=== PATIENT | male | born 1960 | race Caucasian/White ===

== ENCOUNTER 2018-03-03 18:15 | Emergency (ER) | payer MEDICARE, SELFPAY ==
[2018-03-03 18:17] VITALS: BP 140/96; PULSE 64; RESP 18; TEMP 36.1; O2SAT 97; BMI 22.2
--- NOTE | 2018-03-03 18:24 | RAD_ITS ---
STUDY: X-RAY - LEFT WRIST REASON FOR EXAM: Male, 58 years old. Trauma TECHNIQUE: 3 view(s) of the wrist were obtained. COMPARISON: None. FINDINGS: There is an impacted, comminuted fracture of the distal radius with dorsal angulation of the major distal fragment. There is a minimally displaced fracture of the ulnar styloid. There are no significant degenerative changes. There are no radiodense foreign bodies. RAD/Wrist min 3 Views IMPRESSION: Impacted, comminuted fracture of the distal radius with dorsal angulation of the major distal fragment. Minimally displaced fracture of the ulnar styloid. Electronically Signed: oRlan Brown, at 19:14 EDT Tel , Service support ,
--- NOTE | 2018-03-03 20:09 | CT_ITS ---
STUDY: CT BRAIN WITHOUT CONTRAST REASON FOR EXAM: Male, 58 years old. Fall RADIATION DOSAGE (If Supplied By Facility): CTDIvol = ( 44.99 ) mGy, DLP = ( 779.24 ) mGycm TECHNIQUE: Transaxial CT imaging of the brain was performed without administration of intravenous contrast material. Individualized dose optimization techniques were used for this CT. COMPARISON: 11/13/2012 FINDINGS: There is no acute bleed or infarct. There are stable chronic ischemic and atrophic changes. The ventricles are normal in configuration. There is no hydrocephalus. The visualized paranasal sinuses are clear. The mastoid air cells are well aerated. There is no skull fracture. CT/Brain/Head without Contrast IMPRESSION: Stable chronic ischemic and atrophic changes. No acute intracranial abnormality. Electronically Signed: Rolan Brown, at 21:00 EDT Tel , Service support ,
[2018-03-03] MEDS: Diphth,Pertuss(Acell),Tet Vac 0.5 ML Vial IM (20:58)
[2018-03-03] MEDS: HYDROcodone Bitartrate/Apap 5/325 Tablet PO ×2 (20:58→21:57)
--- NOTE | 2018-03-03 21:36 | ED.DCSUM_ITS ---
- ER Visit Summary Date of Service: 03/03/18 Chief Complaint: Fall History of Present Illness: The patient is a 58 M who states that he got up from the dinner table tripped and fell. He notes that he cut his left ear and injured his left wrist. He is an alcoholic who smokes marijuana and is a heavy tobacco user. The patient denies any loss of consciousness. He notes minimal headache. Unsure of his last tetanus. Physical Examination: Afebrile vital signs are stable Gen: Well-nourished well-developed Head: Normocephalic there is a superficial abrasion/laceration to the left ear. Wound edges are well approximated. No active bleeding. Eyes: Perrl EOMI ENT: TMs clear no rhinorrhea moist mucous membranes Neck: Supple no lymphadenopathy no JVD nontender CVS: Regular rate rhythm no murmurs normal S1-S2 Respiratory: No distress clear to auscultation bilaterally chest nontender Abdomen: Soft nontender nondistended normal bowel sounds no masses Back: Nontender Extremity: The left wrist is deformed. He is neurovascularly intact distal to the injury. Skin: Normal color no rash Neuro: alert orientated ?3 CN II-XII intact normal strength sensation reflexes gait cerebellar Psych: Normal affect normal mood Test Results: Wrist films demonstrated a comminuted intra-articular distal radius fracture with dorsal displacement of the fracture fragments. There is also a ulnar styloid fracture. CT the brain showed no intracranial hemorrhage. Emergency Department Course and Treatment: She received [place] for pain. The patient had his tetanus updated with Adacel. He was placed in a plaster AP splint. I did not feel comfortable given his medical history and sedating him to attempt reduction. I feel as he is neurovascular intact distally we can splint him as is and he can have safe reduction done in operating room. Patient will be referred to Dr. Alexander he is on no [facility]. Impression: 1. Left distal radius and ulnar fracture-closed 2. Splint by physician This note was generated with [employer]ia[employer] dictation software. It may contain incorrect words, spelling, and punctuation that were not noted in review of the chart prior to signing ED Disposition - Plan for ED Patient: Disposition: Home or Assisted Living Chief Complaint: Fall Instructions: ED Fx Wrist General Prescriptions: Hydrocodone Bitart/Apap 5-325 [[place] 5/325] 1 - 2 tab PO Q6H PRN PRN 4 Days #20 tab PRN Reason: Pain Referrals: Luis Alexander, [STAFF PHYSICIAN] - As soon as possible
[2018-03-03 21:59] VITALS: BP 142/80; PULSE 76; RESP 20; O2SAT 96
== END 2018-03-03 21:59 | disposition home or self-care (01) ==
PROVIDERS: Emergency Provider Emergency Medicine; Family Provider Family Medicine; PCP Family Medicine
DX: S52.502A Unspecified fracture of the lower end of left radius, initial encounter for closed fracture (principal); S01.312A Laceration without foreign body of left ear, initial encounter; W01.10XA Fall on same level from slipping, tripping and stumbling with subsequent striking against unspecified object, initial encounter; Y93.9 Activity, unspecified; Y92.89 Other specified places as the place of occurrence of the external cause; Y99.9 Unspecified external cause status; F17.200 Nicotine dependence, unspecified, uncomplicated; F10.20 Alcohol dependence, uncomplicated; F12.90 Cannabis use, unspecified, uncomplicated; Y90.9 Presence of alcohol in blood, level not specified; J44.9 Chronic obstructive pulmonary disease, unspecified; Z72.0 Tobacco use; Z86.19 Personal history of other infectious and parasitic diseases
CPT/HCPCS: 29125; 70450; 73110; 90471; 90715; 99283

== ENCOUNTER → 2018-03-07 09:26 | Outpatient (CLI) | payer MEDICARE, SELFPAY ==
--- NOTE | 2018-03-07 09:28 | RAD_ITS ---
STUDY: X-RAY - LEFT WRIST REASON FOR EXAM: Male, 58 years old. Fracture. TECHNIQUE: 3 view(s) of the wrist were obtained. COMPARISON: March 03, 2018. FINDINGS: Artifact from immobilization material obscures fine bony detail. Again seen is an impacted comminuted fracture of the distal radius with dorsal angulation of the major distal fracture fragment. Again seen is mildly displaced fracture of the ulnar styloid process. RAD/Wrist min 3 Views IMPRESSION: Stable appearance and positioning of the impacted comminuted distal radius fracture and the ulnar styloid fracture. Immobilization material artifact obscures fine bony detail. The fracture of the radius has undergone closed reduction with significantly less dorsal angulation of the major distal fracture fragment. Electronically Signed: Dario Manley MD at 10:06 EDT , Service support ,
== END ==
PROVIDERS: Family Provider Family Medicine; PCP Family Medicine; Visit Provider Orthopaedic Surgery
DX: M25.532 Pain in left wrist (principal)
CPT/HCPCS: 73110

== ENCOUNTER 2018-03-15 10:13 | Day surgery (SDC) | payer MEDICARE, SELFPAY ==
[2018-03-15] VITALS (8 sets, daily range): BP systolic 140–161; BP diastolic 80–99; PULSE 72–95; RESP 16–20; TEMP 36.4–37.3; O2SAT 93–96; BMI 21.2
--- NOTE | 2018-03-15 10:24 | EKG12_ITS ---
Test Reason : PRE-OP Blood Pressure : / mmHG Vent. Rate : 073 BPM Atrial Rate : 073 BPM P-R Int : 240 ms QRS Dur : 074 ms QT Int : 360 ms P-R-T Axes : 060 016 076 degrees QTc Int : 396 ms Sinus rhythm with 1st degree A-V block Otherwise normal ECG When compared with ECG of 18-MAR-2017 05:28, [place] interval has increased Vent. rate has decreased BY 38 BPM Confirmed by SOHAN MORENO, SERA ([id number]), newspaper photo editor DORY ESTRADA ([id number]) on 03/18/2018 3:57:18 PM Referred By: Luis Alexander Confirmed By:SERA PARRY MD
[2018-03-15] MEDS: Ipratropium/Albuterol Sulfate 3 ML AMPUL.NEB INHALATION (11:19)
[2018-03-15] MEDS: Clindamycin 900 MG/50 ML BAG 75 MG IV (12:42)
--- NOTE | 2018-03-15 13:00 | RAD_ITS ---
STUDY: X-RAY - LEFT WRIST REASON FOR EXAM: Male, 58 years old. ORIF IN OR TECHNIQUE: 2 view(s) of the wrist were obtained. 30.8 seconds fluoroscopy. COMPARISON: None. FINDINGS: There is internal fixation of the distal radius fracture in good alignment. The soft tissue structures are unremarkable. RAD/Wrist min 3 Views IMPRESSION: There is internal fixation of the distal radius fracture in good alignment. Electronically Signed: Sharlene Woodruff MD at 15:40 EDT Tel , Service support ,
[2018-03-15] MEDS: Bupivacaine Mpf 0.5% 30 ML VIAL (14:00)
--- NOTE | 2018-03-15 14:03 | OP.PN_ITS ---
Immediate Post-Op Note Date of Procedure: 03/15/18 Primary Surgeon/Physician: Luis Alexander DO attic fans mechanic: Jaswant Ocampo Pre-Operative Diagnosis: Left closed distal radius fracture extra-articular Colles' type Post-Operative Diagnosis: Same as above Surgery/Procedure Performed:: Left wrist open reduction internal fixations- Acumed system Description of Surgical Findings:: See dictation Estimated Blood Loss: 10 Specimen's removed: None Type of Anesthesia:: General ASA Class: ASA2 Mod Systematic Disease - Admit VTE Documentation VTE Present on Admission: No VTE Mechan Device Prophylaxis: SCD's, Knee High MARK Hose VTE Pharm Prophylaxis ordered?: No Reason prophylaxis not ordered:: Treatment Not Indicated
--- NOTE | 2018-03-15 14:03 | PCM.OPRPT ---
Report of Operation Date of Procedure: 03/15/18 Pre-Operative Diagnosis: Left closed distal radius fracture extra-articular Colles' type Post-Operative Diagnosis: Same as above Surgery/Procedure Performed:: Left wrist open reduction internal fixations-Acumed system Description of Surgical Findings:: 58-year-old [id number] male sustained a fall onto his outstretched left arm resulting in a left closed distal radius extra-articular Colles' type fracture. Patient showed significant angulation and was my recommendation patient undergo closed reduction (pinning versus open reduction internal fixation. Patient elected for operative intervention to include open reduction internal fixation at this time. Patient was counseled and consented for the aforementioned procedure. He was met in the holding area where the left upper extremity was marked and identified by the with surgeon. Patient was taken the operating room in satisfactory condition with somewhat to place to identify patient operative procedure and limb. Patient received 900 clindamycin. He had a well-placed tourniquet the left upper extremity after a successful intubation. Left upper extremity was elevated Esmarch used for exsanguination and tourniquet was increased to 250 mmHg for roughly 55 minutes. Patient had a standard FCR approach with sharp dissection down to soft tissues Bovie cautery 20 bleeding. The base of the FCR fascia was opened longitudinally. We then did a subperiosteal resection of the pronator to identify the fracture line. The patient was shortened and in dorsal angulation. We remove any excess debris and copiously irrigated the wound. Then under manual reduction were able to reaccommodate his overall alignment into neutral to a slight volar tilt and held provisionally with K wire fixation. Then using the Acumed distal radius system we placed an appropriate placed plate taken to the articular margin per standard technique and then fixing distally using locking screw technique. We had a 5? kickstand proximally. Upon completion of the distal fixation and confirmation with good mechanical alignment with AP lateral and joint line views we then began our proximal fixation using standard AO technique. This placed the wrist in neutral to slight volar tilt with excellent radial height and inclination. Upon completion of the operative procedure the wound was copiously irrigated and the pronator was reapproximated with suture management skin was reapproximated 2-0 Vicryl running subicular Monocryl and then dressed with Xeroform 4 x 4's sterile web roll and placed into a volar splint. I was scrubbed and available time during our procedure. If you require information please visit contact me. There was no drains or complications and implants included again the Acumed distal radius locking plate system. warehouse receiving clerk: Jaswant Ocampo Type of Anesthesia:: General Specimen's removed: None Estimated Blood Loss (mL): 10 Grafts/Implants Used: Acumed - Complications None - Admit VTE Documentation VTE Present on Admission: No VTE Mechan Device Prophylaxis: SCD's, Knee High MARK Hose VTE Pharm Prophylaxis ordered?: No Reason prophylaxis not ordered:: Treatment Not Indicated
--- NOTE | 2018-03-15 14:07 | OP.PCM_ITS ---
Report of Operation Date of Procedure: 03/15/18 Pre-Operative Diagnosis: Left closed distal radius fracture extra-articular Colles' type Post-Operative Diagnosis: Same as above Surgery/Procedure Performed:: Left wrist open reduction internal fixations- Acumed system Description of Surgical Findings:: 58-year-old [id number] male sustained a fall onto his outstretched left arm resulting in a left closed distal radius extra-articular Colles' type fracture. Patient showed significant angulation and was my recommendation patient undergo closed reduction (pinning versus open reduction internal fixation. Patient elected for operative intervention to include open reduction internal fixation at this time. Patient was counseled and consented for the aforementioned procedure. He was met in the holding area where the left upper extremity was marked and identified by the with surgeon. Patient was taken the operating room in satisfactory condition with somewhat to place to identify patient operative procedure and limb. Patient received 900 clindamycin. He had a well-placed tourniquet the left upper extremity after a successful intubation. Left upper extremity was elevated Esmarch used for exsanguination and tourniquet was increased to 250 mmHg for roughly 55 minutes. Patient had a standard FCR approach with sharp dissection down to soft tissues Bovie cautery 20 bleeding. The base of the FCR fascia was opened longitudinally. We then did a subperiosteal resection of the pronator to identify the fracture line. The patient was shortened and in dorsal angulation. We remove any excess debris and copiously irrigated the wound. Then under manual reduction were able to reaccommodate his overall alignment into neutral to a slight volar tilt and held provisionally with K wire fixation. Then using the Acumed distal radius system we placed an appropriate placed plate taken to the articular margin per standard technique and then fixing distally using locking screw technique. We had a 5? kickstand proximally. Upon completion of the distal fixation and confirmation with good mechanical alignment with AP lateral and joint line views we then began our proximal fixation using standard AO technique. This placed the wrist in neutral to slight volar tilt with excellent radial height and inclination. Upon completion of the operative procedure the wound was copiously irrigated and the pronator was reapproximated with suture management skin was reapproximated 2-0 Vicryl running subicular Monocryl and then dressed with Xeroform 4 x 4's sterile web roll and placed into a volar splint. I was scrubbed and available time during our procedure. If you require information please visit contact me. There was no drains or complications and implants included again the Acumed distal radius locking plate system. foreign correspondent: Jaswant Ocampo Type of Anesthesia:: General Specimen's removed: None Estimated Blood Loss (mL): 10 Grafts/Implants Used: Acumed - Complications None - Admit VTE Documentation VTE Present on Admission: No VTE Mechan Device Prophylaxis: SCD's, Knee High MARK Hose VTE Pharm Prophylaxis ordered?: No Reason prophylaxis not ordered:: Treatment Not Indicated
--- NOTE | 2018-03-15 14:07 | PCM.DC.ORTHO ---
Discharge Activity: Return to Normal Activity, May not drive while taking narcotic pain medications., May Shower, - - Keep splint covered during bathing. May resume sexual activity in: No Restrictions Ice area for (Minutes): 20 Weight Bearing Status: No weight bearing Additional Activity Instructions:: Flex and extend fingers ad shivam. Keep hand elevated to prevent swelling. Call your doctor if your incision/area has: Continuous Slow Oozing, Sudden Increased Bleeding, Increased Pain/ Swelling, Increased Redness, Foul Smelling Discharge, Swelling at the incision site Call your doctor if you observe: Fever of 101 or Higher, Coldness, Increased Pain, Numbness or Tingling, Change in Color, Inability to urinate, Inability to have a bowel movement, Using more than one pad per hour, Shortness of breath, Dizziness, Fainting spells, Swelling in the ankles, Chest pain, Prolonged hiccoughing, Increased palpitations (irregular heartbeat), Calf discomfort, Uncontrolled pain Suture Line Care: Avoid Pulling/Pushing, Avoid Pinching/Bending Allergies/Adverse Reactions: Allergies Penicillins Adverse Reaction (Verified 03/07/18 09:29) Other Medications to take at Discharge Amlodipine [Norvasc] 10 mg PO DAILY 09/28/13 Aspirin 325 mg PO DAILY 09/28/13 Citalopram Hydrobromide [Citalopram HBr] 20 mg PO DAILY 09/28/13 Gabapentin [Neurontin] 600 mg PO TIDCM 09/28/13 Lisinopril [Zestril] 20 mg PO BID 09/28/13 proMETHazine tablet [Phenergan tablet] 25 mg PO Q6H PRN PRN #14 tab 03/25/15 Doxazosin Mesylate 2 mg PO QHS 03/16/17 Ergocalciferol [Vitamin D] 2,000 unit PO SUTUTH 03/16/17 Metoprolol Succinate [Toprol Xl] 100 mg PO DAILY 03/16/17 Albuterol Inhaler [Ventolin Hfa] 2 puff INHALATION Q4H PRN PRN 09/08/17 Fluticasone/Salmeterol [Advair 100-50 Diskus] 1 ea IH BID 09/08/17 Omeprazole [Prilosec] 20 mg PO BID #60 cap 09/09/17 hydrocodone 5 mg-acetaminophen 325 mg tablet 1 - 2 tab PO Q6H PRN PRN #42 tab 03/07/18 Clindamycin [Cleocin] 300 mg PO TID #3 cap 03/15/18 Docusate Sodium [Colace] 100 mg PO BID PRN PRN #10 cap 03/15/18 Hydrocodone Bitart/Apap 5-325 [[place] 5/325] 1 - 2 tablet PO Q6H PRN PRN #30 tablet 03/15/18 Hydrocodone Bitart/Apap 5-325 [[place] 5/325] 1 - 2 tablet PO Q6H PRN PRN #60 tablet 03/15/18 Nystatin 100,000 unit PO Q6H 03/15/18 proMETHazine tablet [Phenergan] 25 mg PO Q4H PRN PRN #10 tab 03/15/18 The following prescriptions were given: proMETHazine tablet [Phenergan] 25 mg PO Q4H PRN PRN #10 tab PRN Reason: Nausea Hydrocodone Bitart/Apap 5-325 [[place] 5/325] 1 - 2 tablet PO Q6H PRN PRN #30 tablet PRN Reason: Pain Hydrocodone Bitart/Apap 5-325 [[place] 5/325] 1 - 2 tablet PO Q6H PRN PRN #60 tablet PRN Reason: Pain Docusate Sodium [Colace] 100 mg PO BID PRN PRN #10 cap PRN Reason: Constipation Clindamycin [Cleocin] 300 mg PO TID #3 cap Primary Care Physician: Lloyd Herrera MD [Primary Care Provider] - Please Follow Up With: Luis Alexander DO When: call [facility] for appt for 2 weeks Proposed Discharge Date: 03/15/18
[2018-03-15] MEDS: Ketorolac 15 MG/ML Vial IV (15:15)
== END 2018-03-15 15:44 | disposition home or self-care (01) ==
LOC: SDC 10:13 → AC 10:15
PROVIDERS: Family Provider Family Medicine; PCP Family Medicine; Visit Provider Orthopaedic Surgery
PROC: (CPT 25607; principal; 2018-03-15 11:25)
DX: S52.552A Other extraarticular fracture of lower end of left radius, initial encounter for closed fracture (principal); J44.9 Chronic obstructive pulmonary disease, unspecified; I10 Essential (primary) hypertension; F17.200 Nicotine dependence, unspecified, uncomplicated; W17.89XA Other fall from one level to another, initial encounter; Y93.9 Activity, unspecified; Y92.009 Unspecified place in unspecified non-institutional (private) residence as the place of occurrence of the external cause; Y99.9 Unspecified external cause status; K21.9 Gastro-esophageal reflux disease without esophagitis; F12.90 Cannabis use, unspecified, uncomplicated; B19.20 Unspecified viral hepatitis C without hepatic coma
CPT/HCPCS: 25607; 73110; 76000; 93005; 94640; J7120; J2405

== ENCOUNTER → 2018-03-30 08:33 | Outpatient (CLI) | payer MEDICARE, SELFPAY ==
--- NOTE | 2018-03-30 08:35 | RAD_ITS ---
STUDY: X-RAY - LEFT WRIST REASON FOR EXAM: Male, 58 years old. Fracture, follow-up. TECHNIQUE: 3 view(s) of the wrist were obtained. COMPARISON: None. FINDINGS: Ventral plating of the distal radius is present showing mild increased calyces and osseous bridging of the comminuted distal radial fracture. Normal radiocarpal articulation. Normal distal radioulnar articulation. Normal carpal bones. Normal carpal articulations. Normal carpometacarpal articulation of the thumb. Normal second through fifth carpometacarpal articulations. Normal visualized metacarpal bones. The soft tissue structures are unremarkable. RAD/Wrist min 3 Views IMPRESSION: Mild interval healing consistent with osseous bridging and callus formation of the distal comminuted fracture. Ventral plating showing no evidence of hardware failure. Electronically Signed: Nico Garcia DO at 20:20 EDT , Service support ,
== END ==
PROVIDERS: Family Provider Family Medicine; PCP Family Medicine; Visit Provider Orthopaedic Surgery
DX: S52.532A Colles' fracture of left radius, initial encounter for closed fracture (principal)
CPT/HCPCS: 73110

== ENCOUNTER → 2018-05-02 10:30 | Outpatient (CLI) | payer MEDICARE, SELFPAY ==
--- NOTE | 2018-05-02 10:32 | RAD_ITS ---
STUDY: X-RAY - LEFT WRIST REASON FOR EXAM: Male, 58 years old. Follow-up fracture TECHNIQUE: 3 view(s) of the wrist were obtained. COMPARISON: March 30, 2018 and March 03, 2018 FINDINGS: Comminuted distal radius fracture with fixation plate and screws is stable. There is partial healing with periosteal reaction. There is stable ulna styloid fracture. Normal radiocarpal articulation. Normal distal radioulnar articulation. Normal carpal bones. There is degenerative arthrosis of the carpal articulations. There is degenerative arthrosis of the carpometacarpal articulation of the thumb. Normal second through fifth carpometacarpal articulations. Normal visualized metacarpal bones. The soft tissue structures are unremarkable. RAD/Wrist min 3 Views IMPRESSION: Distal radius fracture with early healing status post ORIF. Stable ulna styloid fracture. Electronically Signed: Ciro Gaines MD at 12:04 EDT , Service support ,
== END ==
PROVIDERS: Family Provider Family Medicine; PCP Family Medicine; Visit Provider Orthopaedic Surgery
DX: M25.532 Pain in left wrist (principal)
CPT/HCPCS: 73110

== ENCOUNTER → 2018-06-13 08:26 | Outpatient (CLI) | payer MEDICARE, SELFPAY ==
--- NOTE | 2018-06-13 08:27 | RAD_ITS ---
STUDY: X-RAY - LEFT WRIST REASON FOR EXAM: Male, 58 years old. Seven-week postop TECHNIQUE: 3 view(s) of the wrist were obtained. COMPARISON: Previous study of 05/02/2018 FINDINGS: There is a fixation plate along the anterior aspect of the distal radial shaft, metaphysis, and epiphysis stabilizing a comminuted fracture of such. There is a displaced ulnar styloid process fracture. Normal radiocarpal articulation. Normal distal radioulnar articulation. The bones are osteopenic. There are degenerative changes of the first metacarpal greater multangular joint and greater multangular navicular joint. Normal second through fifth carpometacarpal articulations. Normal visualized metacarpal bones. The soft tissue structures are unremarkable. RAD/Wrist min 3 Views IMPRESSION: Internal fixation with plate and multiple screws of comminuted nondisplaced fracture of the distal radial shaft, metaphysis, and epiphysis. Fracture alignment is unchanged from the previous study. There is minimal callus and periosteal new bone formation. Bone union has not occurred as of yet. A displaced ulnar styloid process fracture is also noted. There are degenerative changes of the first metacarpal greater multangular and greater multangular navicular joints. Electronically Signed: Dominick Lopez MD at 16:59 EDT , Service support ,
== END ==
PROVIDERS: Family Provider Family Medicine; PCP Family Medicine; Visit Provider Physician Assistant
DX: M25.532 Pain in left wrist (principal)
CPT/HCPCS: 73110

== ENCOUNTER 2018-08-08 10:18 | Inpatient (IN) | payer MEDICARE, SELFPAY ==
[2018-08-08] VITALS (18 sets, daily range): BP systolic 93–149; BP diastolic 62–101; PULSE 64–86; RESP 14–22; TEMP 36.2; O2SAT 20–100; BMI 20.5; BMI 21.1
--- NOTE | 2018-08-08 10:40 | CT_ITS ---
STUDY: CT ABDOMEN AND PELVIS WITHOUT CONTRAST REASON FOR EXAM: Male, 58 years old. 4-5 week history of weakness with nausea vomiting and diarrhea. RADIATION DOSAGE (If Supplied By Facility): CTDIvol = ( 6.35 ) mGy, DLP = ( 300.05 ) mGycm TECHNIQUE: Transaxial images were obtained from the dome of the diaphragm to the symphysis pubis without oral contrast, and without intravenous contrast. Sagittal and coronal images were reconstructed. Individualized dose optimization techniques were used for this CT. COMPARISON: Comparison is made with prior study dated April 02, 2017. FINDINGS: The visualized lung bases are unremarkable. Healed rib fractures. The visualized portions of the heart are within normal limits. Normal liver. Normal gallbladder and extrahepatic biliary system. Normal spleen. Normal pancreas. Normal bilateral adrenal glands. Normal right kidney. Normal left kidney. Minimal degree of nonspecific bilateral perinephric stranding. There is a small hiatal hernia. Normal small intestine. Normal colon. The appendix is visualized and appears normal. There is diffuse atherosclerotic calcification of the abdominal aorta and its major visceral branches, without a demonstrated aneurysm. Normal inferior vena cava. There is borderline retroperitoneal lymphadenopathy with enlarged nodes no greater than 10mm in the short axis diameter. Normal urinary bladder. There are prostatic calcifications. There is a small umbilical hernia containing fat. There are diffuse degenerative changes of the visualized lumbar spine. Stable loss of height of the L4 vertebrae. CT/Abdomen/Pelvis without Cont IMPRESSION: Nonspecific bilateral perinephric stranding. Stable compression fracture of the L4 vertebra. No acute abnormalities Electronically Signed: Gordy Lang MD at 11:31 EDT Tel [phone], Service support ,
--- NOTE | 2018-08-08 10:45 | ED.VISSUMM ---
- ER Visit Summary Date of Service: 08/08/18 Chief Complaint: Nausea, vomiting, diarrhea History of Present Illness: The patient is a 58 M reports nausea, vomiting, diarrhea over the past 5 days. He states he is too weak to walk without assistance. He states he did fall and hit his right lower ribs a few days ago. He denies bloody vomitus or stools. He does drink approximately 10 beers a day. He has not been able to keep his alcohol down several days. Past history is significant for paroxysmal A. fib, hypertension, COPD, hepatitis C/cirrhosis, seizure from prior alcohol withdrawal. In addition to alcohol abuse, patient is a smoker and uses marijuana. Physical Examination: Blood pressure in triage was 95/62, but 132/119 the time of my examination. Temperature is 97.2, heart rate 76, respiratory rate 15, pulse ox 100% on room air. Head and neck examination is unremarkable with no sign of trauma. Heart is regular rate and rhythm. Lung sounds are clear. He has mild tenderness of the right lower ribs. There is no crepitus or overlying abrasion/ecchymosis. Abdomen is soft with mild right upper quadrant tenderness. Normal bowel sounds are noted. Neuro exam reveals no hand tremor at this time. Test Results: CBC was a white count of 14.1 with 71% neutrophils. Chemistry studies reveal a sodium of 109, potassium 3.2, chloride 76. Bicarb is 18. BUN is 30. On review of prior records it appears his sodium level is usually in the mid 1 teen range. He is usually discharged with sodium levels in the mid to upper 120s. LFTs and lipase are normal. Magnesium is normal. Coags normal. CT flank shows nonspecific bilateral perinephric stranding. Stable compression fracture of L4 is noted. Emergency Department Course and Treatment: Patient is given 2 L of IV fluid, Zofran, and fentanyl. On repeat evaluation he does feel somewhat improved. Family now states he had similar illness to this when he was diagnosed with C. difficile in the past. Stool studies have been ordered. Urinalysis has also been ordered secondary to the perinephric stranding on CT. At this time patient will require admission for further hydration and treatment. Hospitalist is on page. Treatment Plan: [] Disposition: Admit Impression: 1. Gastroenteritis 2. Severe hyponatremia 3. Hypokalemia This note was generated with Dragon dictation software. It may contain incorrect words, spelling, and punctuation that were not noted in review of the chart prior to signing ED Disposition - Plan for ED Patient: Chief Complaint: Nausea/Vomiting/Diarrhea Referrals: Lloyd Herrera MD [Primary Care Provider] -
[2018-08-08] MEDS: 0.9% Normal Saline 1,000 ML 1000 ML IV (10:49)
[2018-08-08] MEDS: fentaNYL 100 MCG/2 ML Ampul 25 MCG IV (10:49)
[2018-08-08] MEDS: Ondansetron 4 MG/2 ML Vial IV (10:49)
[2018-08-08 11:07] LABS: Prothrombin Time (Protime)PT. 12.9 SECONDS (11.7-14.9)
[2018-08-08 11:08] LABS: Partial Thromboplast Time 28.6 Seconds (24.1-36.2)
[2018-08-08 11:18] LABS: AST(SGOT) 37 U/L (15-37); Alanine Aminotransfer ALT/SGPT 32 U/L (16-61); Albumin, Serum 3.3 g/dL (3.2-5.0); Alkaline Phosphatase 100 U/L (45-117); Anion Gap 15 (5-15); BUN 30 mg/dL (7-18); BUN/Creat Ratio 28.6 RATIO (10-20); Bilirubin, Direct 0.25 mg/dL (0.00-0.30); Calcium,Total 8.9 mg/dL (8.5-10.1); Chloride 76 mmol/L (98-107); Creatinine, Serum 1.05 mg/dL (0.70-1.30); EST Glomerular Filtration Rate 77 mL/min (>60); Est Glom Filt Rate - Afr Amer 94 mL/min (>60); Estimated Creatinine Clearance 67.19 ml/min; Globulin 4.8 g/dL (2.2-4.2); Glucose 103 mg/dL (74-106); Lipase 189 U/L (73-393); Magnesium 2.1 mg/dL (1.6-2.6); Potassium 3.2 mmol/L (3.5-5.1); Protein, Total 8.1 g/dL (6.4-8.2); Sodium Level 109 mmol/L (136-145)
[2018-08-08 11:20] LABS: Absolute Lymphocyte Count 3.27 X10^3/ul (0.83-4.51); Absolute Neutrophil Count 10.1 X10^3/uL (2.0-7.7); Basophil# 0.01 X10^3/uL; Basophil% 0.1 % (0-1); Eosinophil# 0.05 X10^3/uL; Eosinophils% 0.4 % (0-5); Hematocrit 40.6 % (40-54); Hemoglobin 14.6 g/dl (13.0-16.5); Lymphocyte # 3.27 X10^3/ul (4.0); Lymphocyte % 23.2 % (19-41); Mean Corpuscular Volume 86.4 fL (80-94); Mean Platelet Vol. 9.8 fl (6.2-12.0); Monocyte# 0.58 X10^3/uL; Monocyte% 4.1 % (0-10); Neutrophil # 10.06 X10^3/uL (2.7-7.7); Neutrophil % 71.3 % (47-70); Platelet Count 310 K/mm3 (150-450); RBC Distribution Width CV 12.4 % (11.6-14.6); RBC Distribution Width SD 39.4 fl (35.1-43.9); White Blood Count 14.1 K/mm3 (4.4-11.0)
[2018-08-08 11:21] LABS: Differential Indicated SCAN CRITERIA MET; POSITIVE COUNT YES; POSITIVE DIFFERENTIAL NO; POSITIVE MORPHOLOGY YES
[2018-08-08 11:45] LABS: Reactive Lymphocyte RARE
[2018-08-08] MEDS: 0.9% Normal Saline 1,000 ML 999 ML IV (12:13)
--- NOTE | 2018-08-08 13:22 | PCM.HP.STD ---
Problem List (1) Hypophosphatemia Status: Resolved (2) Gastroenteritis Status: Resolved (3) Hyponatremia Status: Chronic (4) Poor dental hygiene Status: Chronic (5) Hypomagnesemia Status: Acute (6) Atrial fibrillation Status: Chronic Qualifiers: (7) Tobacco abuse Status: Chronic (8) COPD (chronic obstructive pulmonary disease) Status: Chronic (9) Hypertension Status: Chronic (10) Cannabis abuse Status: Chronic (11) Chronic hepatitis C Status: Chronic Qualifiers: (12) Continuous chronic alcoholism Status: Chronic History of Present Illness Date of Admission: 08/08/18 Chief Complaint: Nausea vomiting and diarrhea for 4 days The patient is a 58 year old M with history of chronic alcoholism about 10 bottles of beer every day and previous admissions for similar problem with hyponatremia was brought into ER for nausea, vomiting and diarrhea for last 5 days. Patient feels very weak and gets short of breath on walking short distance. Patient denies fever, chills or lower urinary tracts. He denies hematemesis, hematochezia or melena. As per the family, he did drink alcohol for about 4-5 days because of nausea and vomiting. He also has history of recurrent fall, last time few days ago and fell on his right side of chest. Patient also smokes cigarettes and marijuana In ED, he has leukocytosis 14,000 with neutrophils 71%. Sodium 109. K3.2, BUN 30, creatinine 1.05. CT abdomen was done in ER and shows nonspecific bilateral perinephric stranding and a stable compression fracture of L4 vertebra. Past Medical History Past Medical History (Chronic Problems): Chronic Problems (Last Updated 03/07/18 @ 09:30 by Jose Ruff) Hyponatremia (Chronic) Poor dental hygiene (Chronic) Atrial fibrillation (Chronic) Tobacco abuse (Chronic) COPD (chronic obstructive pulmonary disease) (Chronic) Hypertension (Chronic) Cannabis abuse (Chronic) Chronic hepatitis C (Chronic) Continuous chronic alcoholism (Chronic) Medical History: Medical History (Last Updated 03/07/18 @ 09:30 by Jose Ruff) COPD (chronic obstructive pulmonary disease) J44.9 H/O: HTN (hypertension) Z86.79 Allergies Penicillins Adverse Reaction (Verified 08/08/18 10:18) Other Home Medications: Ambulatory Orders Medication Instructions Recorded Amlodipine [Norvasc] 10 mg PO DAILY 08/08/18 Citalopram [Celexa] 20 mg PO DAILY 08/08/18 Gabapentin [Neurontin] 600 mg PO TIDCM 08/08/18 Lisinopril [Zestril] 20 mg PO BID 08/08/18 Metoprolol Succinate [Toprol Xl] 100 mg PO DAILY 08/08/18 Pantoprazole Sodium [Protonix] 20 mg PO DAILY 08/08/18 proMETHazine tablet [Phenergan 25 mg PO Q6H PRN PRN 08/08/18 tablet] Surgical History: Surgical History (Last Updated 03/30/18 @ 12:53 by Alejandra Loyd) h/o left wrist ORIF 03/15/18 H/O hemorrhoidectomy Z98.890 Surgical History: tonsillectomy, - - Hemorrhoidectomy. He has a hx of jumping off a bridge when running from the [place] and was in a body cast for 6 months. Psychiatric History: Post traumatic stress Smoking Status: Current every day smoker Tobacco Use: Cigarettes Alcohol: Heavy Drugs: Marijuana - *Family History Maternal Family History: Family History (Last Updated 03/07/18 @ 09:33 by Jose Ruff) Mother Hypertension COPD (chronic obstructive pulmonary disease) Cancer Father Hypertension Kidney disease History Items: Heart Disease, No pertinent history, - Paternal Family History: Family History (Last Updated 03/07/18 @ 09:33 by Jose Ruff) Mother Hypertension COPD (chronic obstructive pulmonary disease) Cancer Father Hypertension Kidney disease History Items: Heart Disease, No pertinent history Review of Systems Constitutional: Reports: Malaise, Weakness, Fatigue. Denies: Chills, Fever, Weight Change HEENT: Denies: Head Aches, Sinus Congestion, Sinus Drainage Cardiovascular: Denies: Chest Pain, Palpitations Respiratory: Denies: Cough, Shortness of breath at rest, Sputum production Gastrointestinal: Reports: Diarrhea, Nausea, Vomiting. Denies: Abdominal Pain, Hematemesis, Hematochezia, Melena Genitourinary: Denies: Dysuria, Frequency, Hematuria, Hesitancy, Urgency Musculoskeletal: Denies: Joint Pain, Joint Tenderness Skin: Denies: Rash, Wounds Neurological: Reports: Balance problems, Incoordination. Denies: Focal weakness, Numbness, Tingling Psychiatric: Reports: Anxiety, Depression. Denies: Homicidal Ideations, Suicidal Ideations Hematologic/ Lymphatic: Denies: Easy Bruising, Easy Bleeding VTE Information - Inpt Only VTE Present on Admission: No VTE Mechan Device Prophylaxis: None VTE Pharm Prophylaxis ordered?: Yes - Physical Exam General: Alert, Oriented x3, Cooperative HEENT: Atraumatic, PERRLA, EOMI, Normocephalic Oral: Dry Mucosa Neck: Supple, No JVD, Negative Carotid Bruits Lungs: Clear to auscultation, Normal air movement, No wheeze, No rales Cardiovascular: Regular rate, Regular Rhythm, Normal S1, Normal S2, No murmurs Abdomen: Bowel Sounds Present, Soft, Non Tender, Non-Distended Extremities: No edema, Capillary Refill Less than 3 Seconds Skin: No rashes, No breakdown Musculoskeletal: No Tenderness to Palpation of Joints or Extremities, Muscle Wasting Neurological: Cranial nerves II-XII grossly intact Psych/Mental Status: Normal Affect, Appropriate Vital Signs Temp Pulse Resp BP Pulse Ox 97.2 F L 69 16 143/87 H 97 08/08/18 10:19 08/08/18 12:46 08/08/18 12:46 08/08/18 12:46 08/08/18 12:46 Assessment/Plan All Active Problems (Last Updated 03/07/18 @ 09:30 by Jose Ruff) Hypophosphatemia (Resolved) Gastroenteritis (Resolved) Hypomagnesemia (Acute) Community acquired pneumonia (Resolved) Thrombocytopenia (Resolved) The patient is a 58 year old M with history of chronic alcoholism about 10 bottles of beer every day and previous admissions for similar problem with hyponatremia was brought into ER for nausea, vomiting and diarrhea for last 5 days. Patient feels very weak and gets short of breath on walking short distance. Patient denies fever, chills or lower urinary tracts. He denies hematemesis, hematochezia or melena. As per the family, he did drink alcohol for about 4-5 days because of nausea and vomiting. He also has history of recurrent fall, last time few days ago and fell on his right side of chest. Patient also had transient blackout with blurry vision but said he was aware of the surrounding Patient also smokes cigarettes and marijuana. In ED, he has leukocytosis 14,000 with neutrophils 71%. Sodium 109. K3.2, BUN 30, creatinine 1.05. CT abdomen was done in ER and shows nonspecific bilateral perinephric stranding and a stable compression fracture of L4 vertebra. 1. Acute on chronic hyponatremia most rapidly hypotonic hypovolemic type baseline beer protamania: Patient is being admitted in ICU. Follow BMP every 4 hourly until sodium is more than 120. Church History Teacher consult. As as I do not think it is acute severe hyponatremia but developed over 4-5 days, does not need hypertonic saline. Patient received 2 L normal saline bolus in the ED and continue IV fluid normal saline 2. Nausea, vomiting and diarrhea probably related to alcohol withdrawal: CT abdomen does not show bowel abnormality. Symptomatic management. 3. Nonspecific bilateral perinephric stranding; abnormal CT finding: Patient denies lower urinary tract symptoms. UA and urine culture ordered. Does not require antibiotic now. 4. Chronic alcohol use: CIWA protocol. Ativan as needed. Patient is awake and alert and oriented denies hallucinations. 5. history of paroxysmal atrial fibrillation: Previous EKG of March 15, 2018 shows normal sinus rhythm with first-degree AV block. EKG ordered. Patient on metoprolol succinate 100 mg daily Other chronic medical problems include hypertension, chronic hepatitis C, COPD, nicotine dependence, chronic hypophosphatemia and hypomagnesemia secondary to alcohol use and severe protein calorie malnutrition: Multiple comorbidities complicates the present care and expect difficult and delay recovery. Senior Manager [employer] consult. manager infusion consult. DVT prophylaxis: On Lovenox 40 mg subcut daily Laboratory Results 08/08/18 10:50: WBC 14.1 H, RBC 4.70, Hgb 14.6, Hct 40.6, MCV 86.4, MCH 31.0, MCHC 36.0, RDW 12.4, RDW Differential 39.4, Plt Count 310, MPV 9.8, Immature Gran % (Auto) 0.900, Neut % (Auto) 71.3 H, Lymph % (Auto) 23.2, [place] % (Auto) 4.1, Eos % (Auto) 0.4, Baso % (Auto) 0.1, Absolute Neuts (auto) 10.1 H, Absolute Lymphs (auto) 3.27, Total Counted Not Reportable, Reactive Lymphocytes RARE 08/08/18 10:50: PT 12.9, INR 1.0, APTT 28.6 08/08/18 10:50: Sodium 109 L*, Potassium 3.2 L, Chloride 76 L, Carbon Dioxide 18.0 L, Anion Gap 15, BUN 30 H, Creatinine 1.05, Estim Creat Clear Calc 67.19, Est GFR (MDRD) Af Amer 94, Est GFR (MDRD) Non-Af 77, BUN/Creatinine Ratio 28.6 H, Glucose 103, Calcium 8.9, Magnesium 2.1, Total Bilirubin 0.80, Direct Bilirubin 0.25, AST 37, ALT 32, Alkaline Phosphatase 100, Total Protein 8.1, Albumin 3.3, Globulin 4.8 H, Lipase 189 08/08/18 10:50: Ethyl Alcohol 4.0 Clinical Impression(s) from Imaging Studies Abdomen/Pelvis CT 08/08/18 10:40 IMPRESSION: Nonspecific bilateral perinephric stranding. Stable compression fracture of the L4 vertebra. No acute abnormalities Code Visit Inpatient E&M: 38977 Init Hosp L3
--- NOTE | 2018-08-08 13:28 | HP.PCM_ITS ---
Problem List (1) Hypophosphatemia Status: Resolved (2) Gastroenteritis Status: Resolved (3) Hyponatremia Status: Chronic (4) Poor dental hygiene Status: Chronic (5) Hypomagnesemia Status: Acute (6) Atrial fibrillation Status: Chronic Qualifiers: (7) Tobacco abuse Status: Chronic (8) COPD (chronic obstructive pulmonary disease) Status: Chronic (9) Hypertension Status: Chronic (10) Cannabis abuse Status: Chronic (11) Chronic hepatitis C Status: Chronic Qualifiers: (12) Continuous chronic alcoholism Status: Chronic History of Present Illness Date of Admission: 08/08/18 Chief Complaint: Nausea vomiting and diarrhea for 4 days The patient is a 58 year old M with history of chronic alcoholism about 10 bottles of beer every day and previous admissions for similar problem with hyponatremia was brought into ER for nausea, vomiting and diarrhea for last 5 days. Patient feels very weak and gets short of breath on walking short distance. Patient denies fever, chills or lower urinary tracts. He denies hematemesis, hematochezia or melena. As per the family, he did drink alcohol for about 4-5 days because of nausea and vomiting. He also has history of recurrent fall, last time few days ago and fell on his right side of chest. Patient also smokes cigarettes and marijuana In ED, he has leukocytosis 14,000 with neutrophils 71%. Sodium 109. K3.2, BUN 30, creatinine 1.05. CT abdomen was done in ER and shows nonspecific bilateral perinephric stranding and a stable compression fracture of L4 vertebra. Past Medical History Past Medical History (Chronic Problems): Chronic Problems (Last Updated 03/07/18 @ 09:30 by Jose Ruff) Hyponatremia (Chronic) Poor dental hygiene (Chronic) Atrial fibrillation (Chronic) Tobacco abuse (Chronic) COPD (chronic obstructive pulmonary disease) (Chronic) Hypertension (Chronic) Cannabis abuse (Chronic) Chronic hepatitis C (Chronic) Continuous chronic alcoholism (Chronic) Medical History: Medical History (Last Updated 03/07/18 @ 09:30 by Jose Ruff) COPD (chronic obstructive pulmonary disease) J44.9 H/O: HTN (hypertension) Z86.79 Allergies Penicillins Adverse Reaction (Verified 08/08/18 10:18) Other Home Medications: Ambulatory Orders Medication Instructions Recorded Amlodipine [Norvasc] 10 mg PO DAILY 08/08/18 Citalopram [Celexa] 20 mg PO DAILY 08/08/18 Gabapentin [Neurontin] 600 mg PO TIDCM 08/08/18 Lisinopril [Zestril] 20 mg PO BID 08/08/18 Metoprolol Succinate [Toprol Xl] 100 mg PO DAILY 08/08/18 Pantoprazole Sodium [Protonix] 20 mg PO DAILY 08/08/18 proMETHazine tablet [Phenergan 25 mg PO Q6H PRN PRN 08/08/18 tablet] Surgical History: Surgical History (Last Updated 03/30/18 @ 12:53 by Alejandra Loyd) h/o left wrist ORIF 03/15/18 H/O hemorrhoidectomy Z98.890 Surgical History: tonsillectomy, - - Hemorrhoidectomy. He has a hx of jumping off a bridge when running from the [employer] and was in a body cast for 6 months. Psychiatric History: Post traumatic stress Smoking Status: Current every day smoker Tobacco Use: Cigarettes Alcohol: Heavy Drugs: Marijuana - *Family History Maternal Family History: Family History (Last Updated 03/07/18 @ 09:33 by Jose Ruff) Mother Hypertension COPD (chronic obstructive pulmonary disease) Cancer Father Hypertension Kidney disease History Items: Heart Disease, No pertinent history, - Paternal Family History: Family History (Last Updated 03/07/18 @ 09:33 by Jose Ruff) Mother Hypertension COPD (chronic obstructive pulmonary disease) Cancer Father Hypertension Kidney disease History Items: Heart Disease, No pertinent history Review of Systems Constitutional: Reports: Malaise, Weakness, Fatigue. Denies: Chills, Fever, Weight Change HEENT: Denies: Head Aches, Sinus Congestion, Sinus Drainage Cardiovascular: Denies: Chest Pain, Palpitations Respiratory: Denies: Cough, Shortness of breath at rest, Sputum production Gastrointestinal: Reports: Diarrhea, Nausea, Vomiting. Denies: Abdominal Pain, Hematemesis, Hematochezia, Melena Genitourinary: Denies: Dysuria, Frequency, Hematuria, Hesitancy, Urgency Musculoskeletal: Denies: Joint Pain, Joint Tenderness Skin: Denies: Rash, Wounds Neurological: Reports: Balance problems, Incoordination. Denies: Focal weakness , Numbness, Tingling Psychiatric: Reports: Anxiety, Depression. Denies: Homicidal Ideations, Suicidal Ideations Hematologic/ Lymphatic: Denies: Easy Bruising, Easy Bleeding VTE Information - Inpt Only VTE Present on Admission: No VTE Mechan Device Prophylaxis: None VTE Pharm Prophylaxis ordered?: Yes - Physical Exam General: Alert, Oriented x3, Cooperative HEENT: Atraumatic, PERRLA, EOMI, Normocephalic Oral: Dry Mucosa Neck: Supple, No JVD, Negative Carotid Bruits Lungs: Clear to auscultation, Normal air movement, No wheeze, No rales Cardiovascular: Regular rate, Regular Rhythm, Normal S1, Normal S2, No murmurs Abdomen: Bowel Sounds Present, Soft, Non Tender, Non-Distended Extremities: No edema, Capillary Refill Less than 3 Seconds Skin: No rashes, No breakdown Musculoskeletal: No Tenderness to Palpation of Joints or Extremities, Muscle Wasting Neurological: Cranial nerves II-XII grossly intact Psych/Mental Status: Normal Affect, Appropriate Vital Signs Temp Pulse Resp BP Pulse Ox 97.2 F L 69 16 143/87 H 97 08/08/18 10:19 08/08/18 12:46 08/08/18 12:46 08/08/18 12:46 08/08/18 12:46 Assessment/Plan All Active Problems (Last Updated 03/07/18 @ 09:30 by Jose Ruff) Hypophosphatemia (Resolved) Gastroenteritis (Resolved) Hypomagnesemia (Acute) Community acquired pneumonia (Resolved) Thrombocytopenia (Resolved) The patient is a 58 year old M with history of chronic alcoholism about 10 bottles of beer every day and previous admissions for similar problem with hyponatremia was brought into ER for nausea, vomiting and diarrhea for last 5 days. Patient feels very weak and gets short of breath on walking short distance. Patient denies fever, chills or lower urinary tracts. He denies hematemesis, hematochezia or melena. As per the family, he did drink alcohol for about 4-5 days because of nausea and vomiting. He also has history of recurrent fall, last time few days ago and fell on his right side of chest. Patient also had transient blackout with blurry vision but said he was aware of the surrounding Patient also smokes cigarettes and marijuana. In ED, he has leukocytosis 14,000 with neutrophils 71%. Sodium 109. K3.2, BUN 30, creatinine 1.05. CT abdomen was done in ER and shows nonspecific bilateral perinephric stranding and a stable compression fracture of L4 vertebra. 1. Acute on chronic hyponatremia most rapidly hypotonic hypovolemic type baseline beer protamania: Patient is being admitted in ICU. Follow BMP every 4 hourly until sodium is more than 120. Christmas Tree Contractor consult. As as I do not think it is acute severe hyponatremia but developed over 4-5 days, does not need hypertonic saline. Patient received 2 L normal saline bolus in the ED and continue IV fluid normal saline 2. Nausea, vomiting and diarrhea probably related to alcohol withdrawal: CT abdomen does not show bowel abnormality. Symptomatic management. 3. Nonspecific bilateral perinephric stranding; abnormal CT finding: Patient denies lower urinary tract symptoms. UA and urine culture ordered. Does not require antibiotic now. 4. Chronic alcohol use: CIWA protocol. Ativan as needed. Patient is awake and alert and oriented denies hallucinations. 5. history of paroxysmal atrial fibrillation: Previous EKG of March 15, 2018 shows normal sinus rhythm with first-degree AV block. EKG ordered. Patient on metoprolol succinate 100 mg daily Other chronic medical problems include hypertension, chronic hepatitis C, COPD , nicotine dependence, chronic hypophosphatemia and hypomagnesemia secondary to alcohol use and severe protein calorie malnutrition: Multiple comorbidities complicates the present care and expect difficult and delay recovery. Weight Loss Consultant consult. education and development manager consult. DVT prophylaxis: On Lovenox 40 mg subcut daily Laboratory Results 08/08/18 10:50: WBC 14.1 H, RBC 4.70, Hgb 14.6, Hct 40.6, MCV 86.4, MCH 31.0, MCHC 36.0, RDW 12.4, RDW Differential 39.4, Plt Count 310, MPV 9.8, Immature Gran % (Auto) 0.900, Neut % (Auto) 71.3 H, Lymph % (Auto) 23.2, [place] % (Auto) 4.1, Eos % (Auto) 0.4, Baso % (Auto) 0.1, Absolute Neuts (auto) 10.1 H, Absolute Lymphs (auto) 3.27, Total Counted Not Reportable, Reactive Lymphocytes RARE 08/08/18 10:50: PT 12.9, INR 1.0, APTT 28.6 08/08/18 10:50: Sodium 109 L*, Potassium 3.2 L, Chloride 76 L, Carbon Dioxide 18.0 L, Anion Gap 15, BUN 30 H, Creatinine 1.05, Estim Creat Clear Calc 67.19, Est GFR (MDRD) Af Amer 94, Est GFR (MDRD) Non-Af 77, BUN/Creatinine Ratio 28.6 H , Glucose 103, Calcium 8.9, Magnesium 2.1, Total Bilirubin 0.80, Direct Bilirubin 0.25, AST 37, ALT 32, Alkaline Phosphatase 100, Total Protein 8.1, Albumin 3.3, Globulin 4.8 H, Lipase 189 08/08/18 10:50: Ethyl Alcohol 4.0 Clinical Impression(s) from Imaging Studies Abdomen/Pelvis CT 08/08/18 10:40 IMPRESSION: Nonspecific bilateral perinephric stranding. Stable compression fracture of the L4 vertebra. No acute abnormalities Code Visit Inpatient E&M: 19097 Init Hosp L3
--- NOTE | 2018-08-08 13:40 | EKG12_ITS ---
Test Reason : ADMISSION EKG Blood Pressure : / mmHG Vent. Rate : 077 BPM Atrial Rate : 077 BPM P-R Int : 238 ms QRS Dur : 078 ms QT Int : 412 ms P-R-T Axes : 078 033 060 degrees QTc Int : 466 ms Sinus rhythm with 1st degree A-V block Otherwise normal ECG When compared with ECG of 15-MAR-2018 10:33, T wave amplitude has decreased in Anterior leads QT has lengthened Confirmed by SOHAN MORENO, SERA ([id number]), editorial writer DORY ESTRADA ([id number] on 08/12/2018 3:01:09 PM Referred By: Nirmal Sears Confirmed By:SERA PARRY MD
[2018-08-08] MEDS: 0.9% Normal Saline 1,000 ML 150 ML IV ×2 (13:44→20:21)
[2018-08-08 14:07] LABS: Bacteria 0 SEEN /hpf (None Seen); Mucous, Urine 0 SEEN /hpf (<or=2+); Red Blood Cells-Urine 0 SEEN /hpf (0-5); Squamous Epithelial Cells - UA 0 SEEN /hpf (0-5); White Blood Cells 0 SEEN /hpf (0-5)
[2018-08-08 14:14] LABS: Magnesium 2.1 mg/dL (1.6-2.6); Phosphorus 3.3 mg/dL (2.5-4.9)
[2018-08-08 14:16] LABS: Amphetamine Urine VISTA NEGATIVE (<1000 ng/mL); Barbiturate Urine VISTA NEGATIVE (< 200 ng/mL); Benzodiazepine Urine VISTA NEGATIVE (< 200 ng/mL); Cocaine Urine VISTA NEGATIVE (< 300 ng/mL); Ecstacy Urine VISTA NEGATIVE (< 500 ng/mL); Methadone Urine VISTA NEGATIVE (< 300 ng/mL); PCP Urine VISTA NEGATIVE (< 25 ng/mL); THC Urine VISTA NEGATIVE (< 50 ng/mL); Vista UDS pH Range 5
[2018-08-08 14:22] LABS: BUN 27 mg/dL (7-18); BUN/Creat Ratio 32.7 RATIO (10-20); Calcium,Total 7.9 mg/dL (8.5-10.1); Chloride 85 mmol/L (98-107); Creatinine, Serum 0.82 mg/dL (0.70-1.30); EST Glomerular Filtration Rate 102 mL/min (>60); Est Glom Filt Rate - Afr Amer 124 mL/min (>60); Estimated Creatinine Clearance 88.57 ml/min; Glucose 87 mg/dL (74-106); Potassium 3.2 mmol/L (3.5-5.1); Sodium Level 115 mmol/L (136-145)
[2018-08-08 14:23] LABS: Anion Gap 14 (5-15)
[2018-08-08 14:23] LABS: Color, Urine Straw (Yellow); Glucose, Dipstick Normal (Normal); Ketone-Dipstick 5 mg/dl (Negative); Leukocyte Esterase-Dipstick Negative /ul (Negative); Nitrite-Dipstick Negative (Negative); Occult Blood-Urine Negative /ul (Negative); Protein-Dipstick Negative (Negative); Urine Bilirubin Dipstick Negative (Negative); Urine Clarity Clear (Clear); Urine Urobilinogen Normal (Normal)
[2018-08-08] MEDS: Thiamine Hydrochloride 100 MG Tablet PO ×2 (15:42→18:23)
[2018-08-08] MEDS: Enoxaparin 40 MG/0.4 ML Syringe SC (15:42)
--- NOTE | 2018-08-08 15:55 | PCM.CON.CC ---
Problem List (1) Hyponatremia Status: Chronic (2) Poor dental hygiene Status: Chronic (3) Hypomagnesemia Status: Acute (4) Tobacco abuse Status: Chronic (5) COPD (chronic obstructive pulmonary disease) Status: Chronic (6) Hypertension Status: Chronic (7) Cannabis abuse Status: Chronic (8) Chronic hepatitis C Status: Chronic Qualifiers: (9) Continuous chronic alcoholism Status: Chronic Reason for Consult Date of Consultation: 08/08/18 Reason for Consultation: Hyponatremia History of Present Illness: The patient is a 58 year old M, with past medical history listed below, who presents to [facility] on 08/08/2018 secondary to nausea, vomiting and diarrhea over the last 5 days. Patient reportedly was so weak that he could not walk without assistance. Patient did have a fall couple days ago onto his right side. Patient denies any bloody emesis or stools. Patient does have a past medical history significant for excisional A. fib, COPD and seizure with alcohol withdrawal. Patient states that he typically drinks approximately 10 beers per day. On presentation to the emergency room, patient was noted to be 95/62 and 100% on room air. Patient was noted to have a leukocytosis on chemistries and a sodium of 109 with hypokalemia at 3.2. CT scan of the abdomen showed nonspecific bilateral perinephric stranding with a stable compression fracture at L4. Patient was given 2 L of IV fluids, Zofran, fentanyl and admitted to the intensive care unit for evaluation. Since being in the intensive care unit, patient reports subjective improvement. Patient did have 2 episodes of watery diarrhea noted. Patient feels no nausea at the time of my evaluation. Patient reports his last drink was this morning. Patient denies any fever, chills, melena, hematochezia or hematemesis at home. Patient does have a history of hyponatremia in the past. Patient states he has had seizures associated with alcohol cessation, but recently was jailed for 3 days and did not have a problem. Patient is an avid smoker. Patient did have an episode of choking on a pill while in the ER. However, family reports that he has not had significant issues with choking while at home. Review of systems otherwise negative ?10 systems. Past Medical History Past Medical History (Chronic Problems): Chronic Problems (Last Updated 03/07/18 @ 09:30 by Jose Ruff) Hyponatremia (Chronic) Poor dental hygiene (Chronic) Atrial fibrillation (Chronic) Tobacco abuse (Chronic) COPD (chronic obstructive pulmonary disease) (Chronic) Hypertension (Chronic) Cannabis abuse (Chronic) Chronic hepatitis C (Chronic) Continuous chronic alcoholism (Chronic) Medical History: Medical History (Last Updated 03/07/18 @ 09:30 by Jose Ruff) COPD (chronic obstructive pulmonary disease) J44.9 H/O: HTN (hypertension) Z86.79 Allergies Penicillins Adverse Reaction (Verified 08/08/18 10:18) Other Home Medications: Ambulatory Orders Medication Instructions Recorded Albuterol Inhaler [Ventolin Hfa 2 puff INHALATION Q4H PRN PRN 08/08/18 (SP)] Albuterol Inhaler [Ventolin Hfa] 1 puff INHALATION Q6H PRN PRN 08/08/18 Amlodipine [Norvasc] 10 mg PO DAILY 08/08/18 Aspirin E.C. [Ecotrin] 325 mg PO DAILY@0800 08/08/18 Cholecalciferol (Vitamin D3) 2,000 unit PO QWEEK 08/08/18 [Vitamin D3] Citalopram [Celexa] 20 mg PO DAILY 08/08/18 Doxazosin Mesylate 2 mg PO QHS 08/08/18 Fluticasone/Salmeterol [Advair 1 each IH BID 08/08/18 100-50 Diskus] Gabapentin [Neurontin] 600 mg PO TIDCM 08/08/18 Lisinopril [Zestril] 20 mg PO BID 08/08/18 Metoprolol Succinate [Toprol Xl] 100 mg PO DAILY 08/08/18 Nystatin 5 ml PO 4X/DAY 08/08/18 Pantoprazole Sodium [Protonix] 20 mg PO DAILY 08/08/18 proMETHazine tablet [Phenergan 25 mg PO Q6H PRN PRN 08/08/18 tablet] Surgical History: Surgical History (Last Updated 03/30/18 @ 12:53 by Alejandra Loyd) h/o left wrist ORIF 03/15/18 H/O hemorrhoidectomy Z98.890 Surgical History: tonsillectomy, - - Hemorrhoidectomy. He has a hx of jumping off a bridge when running from the [employer] and was in a body cast for 6 months. Psychiatric History: Post traumatic stress Smoking Status: Current every day smoker Tobacco Use: Cigarettes Alcohol: Heavy Drugs: Marijuana - *Family History Maternal Family History: Family History (Last Updated 03/07/18 @ 09:33 by Jose Ruff) Mother Hypertension COPD (chronic obstructive pulmonary disease) Cancer Father Hypertension Kidney disease History Items: Heart Disease, No pertinent history, - Paternal Family History: Family History (Last Updated 03/07/18 @ 09:33 by Jose Ruff) Mother Hypertension COPD (chronic obstructive pulmonary disease) Cancer Father Hypertension Kidney disease History Items: Heart Disease, No pertinent history Review of Systems Comment: See HPI Objective: CT of the abdomen was reviewed. L4 compression fracture appreciated. Lung bases appeared normal. There are some healing rib fractures. - Physical Exam General: Alert, Oriented x3, Cooperative, No apparent distress, - - Appears older than stated age. Cachectic. Disheveled HEENT: Atraumatic, PERRLA, EOMI, Normocephalic, - - No scleral icterus or injection noted. Oral: No Gingival or Mucosal Lesions/ Ulcerations, Dry Mucosa, - - Poor dentition Neck: Supple, No JVD, No Nodes, Trachea Midline Lungs: No rhonchi, No wheeze, No rales, Diminished, - - Symmetric expansion. No dullness to percussion. Cardiovascular: Regular rate, Regular Rhythm, Normal S1, Normal S2, No murmurs, No rub noted, No Gallop Abdomen: Bowel Sounds Present, Soft, Non Tender, Non-Distended Extremities: No cyanosis, No edema, Capillary Refill Less than 3 Seconds, Clubbing Skin: No rashes, No breakdown Musculoskeletal: No Tenderness to Palpation of Joints or Extremities, Cachexia, Muscle Wasting Lymphatic: No Cervical, Supraclavicular, or Inguinal Adenopathy Neurological: Cranial nerves II-XII grossly intact, Neuro grossly intact, Motor Exam 5/5 strength throughout Psych/Mental Status: Alert and oriented to time, place, person, mood and affect Vital Signs Temp Pulse Resp BP Pulse Ox 36.2 C L 79 17 126/85 H 96 08/08/18 10:19 08/08/18 15:00 08/08/18 15:00 08/08/18 15:00 08/08/18 15:00 Oxygen Delivery Method Room Air Weight: 63 kg Body Mass Index (BMI) 21.1 Microbiology Past 72 Hours 08/08/18 13:50 Stool Lactoferrin - Final Stool Laboratory Tests Past 24 Hrs 08/08/18 08/08/18 08/08/18 13:50 13:55 13:55 Sodium 115 L* Potassium 3.2 L Chloride 85 L Carbon Dioxide 16.0 L Anion Gap 14 BUN 27 H Creatinine 0.82 Estim Creat Clear Calc 88.57 Est GFR (MDRD) Af Amer 124 Est GFR (MDRD) Non-Af 102 BUN/Creatinine Ratio 32.7 H Glucose 87 Calcium 7.9 L Urine Color Straw Urine Clarity Clear Urine pH 5.0 Ur Specific [place] 1.010 Urine Protein Negative Urine Glucose (UA) Normal Urine Ketones 5 H Urine Occult Blood Negative Urine Nitrite Negative Urine Bilirubin Negative Urine Urobilinogen Normal Ur Leukocyte Esterase Negative Urine RBC 0 SEEN Urine WBC 0 SEEN Ur Squamous Epith Cells 0 SEEN Urine Bacteria 0 SEEN Urine Mucus 0 SEEN Urine Opiates Screen NEGATIVE Urine Methadone Screen NEGATIVE Ur Barbiturates Screen NEGATIVE Ur Phencyclidine Scrn NEGATIVE Ur Amphetamines Screen NEGATIVE U Methamphetamin-MDMA NEGATIVE U Benzodiazepines Scrn NEGATIVE Urine Cocaine Screen NEGATIVE U Cannabinoids Screen NEGATIVE Ur Drug Screen Comment Clinical Impression(s) from Imaging Studies Abdomen/Pelvis CT 08/08/18 10:40 IMPRESSION: Nonspecific bilateral perinephric stranding. Stable compression fracture of the L4 vertebra. No acute abnormalities Electronically Signed: Gordy Lang MD at 11:31 EDT Tel [phone], Service support , Assessment/Plan RECOMMENDATIONS: 1. Continue aggressive fluid resuscitation 2. Await stool studies 3. CIWA protocol 4. Monitor for A. fib with telemetry 5. Bronchodilators as needed IMPRESSIONS: 1. Hypovolemic hyponatremia Acute on chronic finding. Patient does have significant difficulty with alcoholism, which would exacerbate current findings. However, patient is reporting significant GI losses over the last 5 days. Patient is responding well to fluid resuscitation. Patient does have stool studies currently pending. Continue to monitor BMP every 4 hours. Patient is in seizure precautions for both hyponatremia and alcohol withdrawal. Possibly transfer out of the intensive care unit once patient's sodium is greater than 125. 2. Chronic alcoholism/gastroenteritis Unclear etiology of gastroenteritis at this time. Patient does have stool studies currently pending. Patient's CT scan of the abdomen was unimpressive. Agree with avoiding antibiotic at this time. Patient should be placed on the CIWA protocol. 3. History of paroxysmal A. fib/hypertension/hepatitis C/reported COPD/severe protein calorie malnutrition Locates care, management, recovery and prognosis. As needed bronchodilator therapy is likely sufficient. Low clinical suspicion for COPD exacerbation. Patient will be seen by dietitian. Likely need to monitor for refeeding syndrome. Code Visit Inpatient E&M: 34895 Init Hosp L3
--- NOTE | 2018-08-08 16:01 | CASEMGMT ---
RN CM Assessment complete. See Link DC PLAN: undetermined, SW consult for ETOH abuse, possible [facility] intervention. Sawyer SOLISN RN ACM
[2018-08-08] MEDS: Gabapentin 600 MG Tablet PO (18:22)
[2018-08-08 18:39] LABS: BUN 27 mg/dL (7-18); EST Glomerular Filtration Rate 92 mL/min (>60); Estimated Creatinine Clearance 80.69 ml/min; Glucose 117 mg/dL (74-106)
[2018-08-08 18:40] LABS: Anion Gap 9 (5-15); BUN/Creat Ratio 29.8 RATIO (10-20); Calcium,Total 7.7 mg/dL (8.5-10.1); Chloride 92 mmol/L (98-107); Est Glom Filt Rate - Afr Amer 111 mL/min (>60); Potassium 3.3 mmol/L (3.5-5.1); Sodium Level 120 mmol/L (136-145)
--- NOTE | 2018-08-08 23:10 | NURSING ---
This RN received report over telephone from Dunia SENSOR TECHNICIAN
[2018-08-09] VITALS (16 sets, daily range): BP systolic 92–174; BP diastolic 58–115; PULSE 68–87; RESP 16–19; TEMP 36.5–37.3; O2SAT 94–100
[2018-08-09] MEDS: Ipratropium/Albuterol Sulfate 3 ML AMPUL.NEB INHALATION ×2 (00:51→15:35)
[2018-08-09 04:45] LABS: BUN 20 mg/dL (7-18); BUN/Creat Ratio 26.3 RATIO (10-20); Calcium,Total 7.8 mg/dL (8.5-10.1); Creatinine, Serum 0.76 mg/dL (0.70-1.30); EST Glomerular Filtration Rate 112 mL/min (>60); Est Glom Filt Rate - Afr Amer 136 mL/min (>60); Estimated Creatinine Clearance 95.56 ml/min; Glucose 129 mg/dL (74-106); Sodium Level 124 mmol/L (136-145)
[2018-08-09 04:46] LABS: Anion Gap 7 (5-15); Chloride 96 mmol/L (98-107); Potassium 3.2 mmol/L (3.5-5.1)
[2018-08-09 05:40] LABS: Hematocrit 33.3 % (40-54); Mean Corpuscular Hgb 31.9 pg (27.0-32.0); Mean Corpuscular Volume 88.6 fL (80-94); RBC Distribution Width CV 12.5 % (11.6-14.6); Red Blood Count 3.76 M/mm3 (4.6-6.2); White Blood Count 9.8 K/mm3 (4.4-11.0)
[2018-08-09 05:41] LABS: Mean Platelet Vol. 8.9 fl (6.2-12.0); Platelet Count 266 K/mm3 (150-450); Scan Indicated on CBC? Y/N NO
[2018-08-09 05:53] LABS: Anion Gap 9 (5-15); BUN 18 mg/dL (7-18); BUN/Creat Ratio 21.5 RATIO (10-20); Calcium,Total 8.5 mg/dL (8.5-10.1); Chloride 96 mmol/L (98-107); Creatinine, Serum 0.84 mg/dL (0.70-1.30); EST Glomerular Filtration Rate 100 mL/min (>60); Est Glom Filt Rate - Afr Amer 121 mL/min (>60); Estimated Creatinine Clearance 86.05 ml/min; Glucose 101 mg/dL (74-106); Potassium 3.8 mmol/L (3.5-5.1); Sodium Level 128 mmol/L (136-145)
--- NOTE | 2018-08-09 07:40 | PCM.PN.INT ---
Subjective: Patient transferred out of the intensive care unit yesterday. Patient reports he feels back to baseline at this time. No withdrawal symptoms have been reported. Patient tolerating room air and no fevers have been noted. General: Alert, Oriented x3, Cooperative, No apparent distress, - - Appears older than stated age. Disheveled. HEENT: Atraumatic, PERRLA, EOMI, Normocephalic, - - No scleral icterus or injection noted. Oral: Moist Mucosa, No Gingival or Mucosal Lesions/ Ulcerations, - - Poor dentition Neck: Supple, No JVD, No Nodes, Trachea Midline Lungs: No rhonchi, No wheeze, No rales, Diminished, - - Symmetric expansion. No dullness to percussion. Cardiovascular: Regular rate, Regular Rhythm, Normal S1, Normal S2, No murmurs, No rub noted, No Gallop Abdomen: Bowel Sounds Present, Soft, Non Tender, Non-Distended Extremities: No cyanosis, No edema, Capillary Refill Less than 3 Seconds, Clubbing Skin: - - No significant change from previous Musculoskeletal: No Tenderness to Palpation of Joints or Extremities Lymphatic: No Cervical, Supraclavicular, or Inguinal Adenopathy Neurological: Cranial nerves II-XII grossly intact, Neuro grossly intact, Motor Exam 5/5 strength throughout Psych/Mental Status: Alert and oriented to time, place, person, mood and affect Vital Signs Temp Pulse Resp BP Pulse Ox 36.7 C 86 16 174/115 H 100 08/09/18 04:10 08/09/18 04:10 08/09/18 04:10 08/09/18 04:10 08/09/18 04:10 Oxygen Delivery Method Room Air Weight: 62.7 kg Body Mass Index (BMI) 21.1 Intake and Output for Last 24 Hours 08/07/18 08/08/18 08/09/18 23:59 23:59 23:59 Intake Total 4676 / 4676 901 / 901 Output Total 1750 / 1750 775 / 775 Balance 2926 / 2926 126 / 126 Labs (Last 48 Hours) 08/08/18 08/08/18 08/08/18 10:50 10:50 10:50 WBC 14.1 H RBC 4.70 Hgb 14.6 Hct 40.6 MCV 86.4 MCH 31.0 MCHC 36.0 RDW 12.4 RDW Differential 39.4 Plt Count 310 MPV 9.8 Immature Gran % (Auto) 0.900 Neut % (Auto) 71.3 H Lymph % (Auto) 23.2 [place] % (Auto) 4.1 Eos % (Auto) 0.4 Baso % (Auto) 0.1 Absolute Neuts (auto) 10.1 H Absolute Lymphs (auto) 3.27 Total Counted Not Reportable Reactive Lymphocytes RARE PT 12.9 INR 1.0 APTT 28.6 Sodium 109 L* Potassium 3.2 L Chloride 76 L Carbon Dioxide 18.0 L Anion Gap 15 BUN 30 H Creatinine 1.05 Estim Creat Clear Calc 67.19 Est GFR (MDRD) Af Amer 94 Est GFR (MDRD) Non-Af 77 BUN/Creatinine Ratio 28.6 H Glucose 103 Calcium 8.9 Phosphorus Magnesium 2.1 Total Bilirubin 0.80 Direct Bilirubin 0.25 AST 37 ALT 32 Alkaline Phosphatase 100 Total Protein 8.1 Albumin 3.3 Globulin 4.8 H Lipase 189 Urine Color Urine Clarity Urine pH Ur Specific [place] Urine Protein Urine Glucose (UA) Urine Ketones Urine Occult Blood Urine Nitrite Urine Bilirubin Urine Urobilinogen Ur Leukocyte Esterase Urine RBC Urine WBC Ur Squamous Epith Cells Urine Bacteria Urine Mucus Urine Opiates Screen Urine Methadone Screen Ur Barbiturates Screen Ur Phencyclidine Scrn Ur Amphetamines Screen U Methamphetamin-MDMA U Benzodiazepines Scrn Urine Cocaine Screen U Cannabinoids Screen Ur Drug Screen Comment Ethyl Alcohol 08/08/18 08/08/18 08/08/18 10:50 10:50 13:50 WBC RBC Hgb Hct MCV MCH MCHC RDW RDW Differential Plt Count MPV Immature Gran % (Auto) Neut % (Auto) Lymph % (Auto) [place] % (Auto) Eos % (Auto) Baso % (Auto) Absolute Neuts (auto) Absolute Lymphs (auto) Total Counted Reactive Lymphocytes PT INR APTT Sodium Potassium Chloride Carbon Dioxide Anion Gap BUN Creatinine Estim Creat Clear Calc Est GFR (MDRD) Af Amer Est GFR (MDRD) Non-Af BUN/Creatinine Ratio Glucose Calcium Phosphorus 3.3 Magnesium 2.1 Total Bilirubin Direct Bilirubin AST ALT Alkaline Phosphatase Total Protein Albumin Globulin Lipase Urine Color Straw Urine Clarity Clear Urine pH 5.0 Ur Specific [place] 1.010 Urine Protein Negative Urine Glucose (UA) Normal Urine Ketones 5 H Urine Occult Blood Negative Urine Nitrite Negative Urine Bilirubin Negative Urine Urobilinogen Normal Ur Leukocyte Esterase Negative Urine RBC 0 SEEN Urine WBC 0 SEEN Ur Squamous Epith Cells 0 SEEN Urine Bacteria 0 SEEN Urine Mucus 0 SEEN Urine Opiates Screen Urine Methadone Screen Ur Barbiturates Screen Ur Phencyclidine Scrn Ur Amphetamines Screen U Methamphetamin-MDMA U Benzodiazepines Scrn Urine Cocaine Screen U Cannabinoids Screen Ur Drug Screen Comment Ethyl Alcohol 4.0 08/08/18 08/08/18 08/08/18 13:55 13:55 18:15 WBC RBC Hgb Hct MCV MCH MCHC RDW RDW Differential Plt Count MPV Immature Gran % (Auto) Neut % (Auto) Lymph % (Auto) [place] % (Auto) Eos % (Auto) Baso % (Auto) Absolute Neuts (auto) Absolute Lymphs (auto) Total Counted Reactive Lymphocytes PT INR APTT Sodium 115 L* 120 L Potassium 3.2 L 3.3 L Chloride 85 L 92 L Carbon Dioxide 16.0 L 19.0 L Anion Gap 14 9 BUN 27 H 27 H Creatinine 0.82 0.90 Estim Creat Clear Calc 88.57 80.69 Est GFR (MDRD) Af Amer 124 111 Est GFR (MDRD) Non-Af 102 92 BUN/Creatinine Ratio 32.7 H 29.8 H Glucose 87 117 H Calcium 7.9 L 7.7 L Phosphorus Magnesium Total Bilirubin Direct Bilirubin AST ALT Alkaline Phosphatase Total Protein Albumin Globulin Lipase Urine Color Urine Clarity Urine pH Ur Specific [place] Urine Protein Urine Glucose (UA) Urine Ketones Urine Occult Blood Urine Nitrite Urine Bilirubin Urine Urobilinogen Ur Leukocyte Esterase Urine RBC Urine WBC Ur Squamous Epith Cells Urine Bacteria Urine Mucus Urine Opiates Screen NEGATIVE Urine Methadone Screen NEGATIVE Ur Barbiturates Screen NEGATIVE Ur Phencyclidine Scrn NEGATIVE Ur Amphetamines Screen NEGATIVE U Methamphetamin-MDMA NEGATIVE U Benzodiazepines Scrn NEGATIVE Urine Cocaine Screen NEGATIVE U Cannabinoids Screen NEGATIVE Ur Drug Screen Comment Ethyl Alcohol 08/08/18 08/09/18 08/09/18 22:15 02:16 05:10 WBC 9.8 RBC 3.76 L Hgb 12.0 L Hct 33.3 L MCV 88.6 MCH 31.9 MCHC 36.0 RDW 12.5 RDW Differential 40.0 Plt Count 266 MPV 8.9 Immature Gran % (Auto) Neut % (Auto) Lymph % (Auto) [place] % (Auto) Eos % (Auto) Baso % (Auto) Absolute Neuts (auto) Absolute Lymphs (auto) Total Counted Reactive Lymphocytes PT INR APTT Sodium Cancelled 124 L Potassium Cancelled 3.2 L Chloride Cancelled 96 L Carbon Dioxide Cancelled 21.0 Anion Gap Cancelled 7 BUN Cancelled 20 H Creatinine Cancelled 0.76 Estim Creat Clear Calc Cancelled 95.56 Est GFR (MDRD) Af Amer Cancelled 136 Est GFR (MDRD) Non-Af Cancelled 112 BUN/Creatinine Ratio Cancelled 26.3 H Glucose Cancelled 129 H Calcium Cancelled 7.8 L Phosphorus Magnesium Total Bilirubin Direct Bilirubin AST ALT Alkaline Phosphatase Total Protein Albumin Globulin Lipase Urine Color Urine Clarity Urine pH Ur Specific [place] Urine Protein Urine Glucose (UA) Urine Ketones Urine Occult Blood Urine Nitrite Urine Bilirubin Urine Urobilinogen Ur Leukocyte Esterase Urine RBC Urine WBC Ur Squamous Epith Cells Urine Bacteria Urine Mucus Urine Opiates Screen Urine Methadone Screen Ur Barbiturates Screen Ur Phencyclidine Scrn Ur Amphetamines Screen U Methamphetamin-MDMA U Benzodiazepines Scrn Urine Cocaine Screen U Cannabinoids Screen Ur Drug Screen Comment Ethyl Alcohol 08/09/18 05:10 WBC RBC Hgb Hct MCV MCH MCHC RDW RDW Differential Plt Count MPV Immature Gran % (Auto) Neut % (Auto) Lymph % (Auto) [place] % (Auto) Eos % (Auto) Baso % (Auto) Absolute Neuts (auto) Absolute Lymphs (auto) Total Counted Reactive Lymphocytes PT INR APTT Sodium 128 L Potassium 3.8 Chloride 96 L Carbon Dioxide 23.0 Anion Gap 9 BUN 18 Creatinine 0.84 Estim Creat Clear Calc 86.05 Est GFR (MDRD) Af Amer 121 Est GFR (MDRD) Non-Af 100 BUN/Creatinine Ratio 21.5 H Glucose 101 Calcium 8.5 Phosphorus Magnesium Total Bilirubin Direct Bilirubin AST ALT Alkaline Phosphatase Total Protein Albumin Globulin Lipase Urine Color Urine Clarity Urine pH Ur Specific [place] Urine Protein Urine Glucose (UA) Urine Ketones Urine Occult Blood Urine Nitrite Urine Bilirubin Urine Urobilinogen Ur Leukocyte Esterase Urine RBC Urine WBC Ur Squamous Epith Cells Urine Bacteria Urine Mucus Urine Opiates Screen Urine Methadone Screen Ur Barbiturates Screen Ur Phencyclidine Scrn Ur Amphetamines Screen U Methamphetamin-MDMA U Benzodiazepines Scrn Urine Cocaine Screen U Cannabinoids Screen Ur Drug Screen Comment Ethyl Alcohol Microbiology 08/08/18 13:50 Stool C. difficile DNA Amplification - Final 08/08/18 13:50 Stool Stool Lactoferrin - Final Clinical Impression(s) from Imaging Studies Abdomen/Pelvis CT 08/08/18 10:40 IMPRESSION: Nonspecific bilateral perinephric stranding. Stable compression fracture of the L4 vertebra. No acute abnormalities Electronically Signed: Gordy Lang MD at 11:31 EDT Tel [phone], Service support , Medical Necessity - Tobacco Use Smoking Status: Current every day smoker Tobacco Use: Cigarettes Assessment/Plan All Active Problems (Last Updated 03/07/18 @ 09:30 by Jose Ruff) Hypophosphatemia (Resolved) Gastroenteritis (Resolved) Hypomagnesemia (Acute) Community acquired pneumonia (Resolved) Thrombocytopenia (Resolved) RECOMMENDATIONS: 1. Continue aggressive fluid resuscitation 2. Await stool studies 3. CIWA protocol 4. Monitor for A. fib with telemetry 5. Bronchodilators as needed 6. Hemodynamically stable on room air. Will sign off IMPRESSIONS: 1. Hypovolemic hyponatremia Acute on chronic finding. Patient does have significant difficulty with alcoholism, which would exacerbate current findings. However, patient is reporting significant GI losses over the last 5 days. Patient is responding well to fluid resuscitation. Patient's sodium currently responding well to volume resuscitation. Likely okay to continue with fluids. Patient currently hemodynamically stable on room air. Will sign off from a critical care perspective. 2. Chronic alcoholism/gastroenteritis Unclear etiology of gastroenteritis at this time. Patient does have stool studies currently pending. Patient's CT scan of the abdomen was unimpressive. Agree with avoiding antibiotic at this time. Patient should be placed on the CIWA protocol. Peak symptoms would be expected in the next 24-48 hours. 3. History of paroxysmal A. fib/hypertension/hepatitis C/reported COPD/severe protein calorie malnutrition Locates care, management, recovery and prognosis. As needed bronchodilator therapy is likely sufficient. Low clinical suspicion for COPD exacerbation. Patient will be seen by dietitian. Likely need to monitor for refeeding syndrome. Code Visit Inpatient E&M: 23198 Subs Hosp L2
[2018-08-09] MEDS: Citalopram 20 MG Tablet PO (11:03)
[2018-08-09] MEDS: amLODIPine 10 MG Tablet PO (11:03)
[2018-08-09] MEDS: Enoxaparin 40 MG/0.4 ML Syringe SC (11:03)
[2018-08-09] MEDS: Pantoprazole Sodium 20 MG Tablet PO (11:03)
[2018-08-09] MEDS: Lisinopril 20 MG Tablet PO (11:03)
[2018-08-09] MEDS: Multivitamins,Ther W-Minerals Tablet 1 TABLET PO (11:03)
[2018-08-09] MEDS: Folic Acid 1 MG Tablet PO (11:03)
--- NOTE | 2018-08-09 11:16 | CASEMGMT ---
CM assessment initially completed by Sawyer AVENDANO CM and updated by this ROMANA TRAN at this time. Face to Face with patient for initial transition planning/care coordination assessment. RN CHELSEA introduced self and role at [facility], pt voices understanding and consents to assessment at this time. Pt is sitting up in bed in no distress at this time. Pt is A/O x4 at this time and answers all questions appropriately at this time. Care providers, pharmacy, and demographics verified. See attached link. Pt voices no further concerns/needs at this time. Advised pt to ask for CM if any further questions/concerns/needs arise, voices understanding. PLAN: [place] ROMANA TRAN
[2018-08-09] MEDS: Gabapentin 600 MG Tablet PO ×2 (11:26→16:46)
[2018-08-09] MEDS: Thiamine Hydrochloride 100 MG Tablet PO ×2 (11:26→16:46)
[2018-08-09] MEDS: Metoprolol(XL)Succ 100 MG Tablet PO (11:53)
--- NOTE | 2018-08-09 14:10 | PN_ITS ---
<Hubert Berman - Last Filed: 08/09/18 13:58> Subjective: Pt overall improved. Does not use o2 at home. Nonproductive cough. No fever/chills. He is not interested in alcohol cessation at this time. - Physical Exam General: Alert, Oriented x3, Cooperative HEENT: Atraumatic, PERRLA, EOMI, Normocephalic Neck: Supple, No JVD, Negative Carotid Bruits Lungs: Clear to auscultation, Normal air movement Cardiovascular: Regular rate, No murmurs Abdomen: Bowel Sounds Present, Soft, Non Tender Extremities: No edema, Capillary Refill Less than 3 Seconds Skin: No rashes, No breakdown Musculoskeletal: No Tenderness to Palpation of Joints or Extremities Neurological: Cranial nerves II-XII grossly intact Psych/Mental Status: Normal Affect, Appropriate, Alert and oriented to time, place, person, mood and affect Vital Signs Temp Pulse Resp BP Pulse Ox 97.9 F 87 16 137/74 H 98 08/09/18 12:10 08/09/18 12:10 08/09/18 12:10 08/09/18 12:10 08/09/18 12:10 Oxygen Delivery Method Room Air Weight: 138 lb 3.677 oz Body Mass Index (BMI) 21.1 Intake and Output for Last 24 Hours 08/07/18 08/08/18 08/09/18 23:59 23:59 23:59 Intake Total 4676 / 4676 2075 / 2075 Output Total 1750 / 1750 1425 / 1425 Balance 2926 / 2926 650 / 650 Microbiology Past 72 Hours 08/08/18 21:00 Gram Stain - Final Sputum, Expectorated/Coughed Respiratory Culture - Preliminary 08/08/18 13:50 Enteric Bacteriology - Final Stool 08/08/18 13:50 C. difficile DNA Amplification - Final Stool 08/08/18 13:50 Stool Lactoferrin - Final Stool Laboratory Tests Past 24 Hrs 08/08/18 08/08/18 08/08/18 10:50 13:50 13:55 WBC RBC Hgb Hct MCV MCH MCHC RDW RDW Differential Plt Count MPV Sodium Potassium Chloride Carbon Dioxide Anion Gap BUN Creatinine Estim Creat Clear Calc Est GFR (MDRD) Af Amer Est GFR (MDRD) Non-Af BUN/Creatinine Ratio Glucose Calcium Phosphorus 3.3 Magnesium 2.1 Urine Color Straw Urine Clarity Clear Urine pH 5.0 Ur Specific Slaughter 1.010 Urine Protein Negative Urine Glucose (UA) Normal Urine Ketones 5 H Urine Occult Blood Negative Urine Nitrite Negative Urine Bilirubin Negative Urine Urobilinogen Normal Ur Leukocyte Esterase Negative Urine RBC 0 SEEN Urine WBC 0 SEEN Ur Squamous Epith Cells 0 SEEN Urine Bacteria 0 SEEN Urine Mucus 0 SEEN Urine Opiates Screen NEGATIVE Urine Methadone Screen NEGATIVE Ur Barbiturates Screen NEGATIVE Ur Phencyclidine Scrn NEGATIVE Ur Amphetamines Screen NEGATIVE U Methamphetamin-MDMA NEGATIVE U Benzodiazepines Scrn NEGATIVE Urine Cocaine Screen NEGATIVE U Cannabinoids Screen NEGATIVE Ur Drug Screen Comment 08/08/18 08/08/18 08/08/18 13:55 18:15 22:15 WBC RBC Hgb Hct MCV MCH MCHC RDW RDW Differential Plt Count MPV Sodium 115 L* 120 L Cancelled Potassium 3.2 L 3.3 L Cancelled Chloride 85 L 92 L Cancelled Carbon Dioxide 16.0 L 19.0 L Cancelled Anion Gap 14 9 Cancelled BUN 27 H 27 H Cancelled Creatinine 0.82 0.90 Cancelled Estim Creat Clear Calc 88.57 80.69 Cancelled Est GFR (MDRD) Af Amer 124 111 Cancelled Est GFR (MDRD) Non-Af 102 92 Cancelled BUN/Creatinine Ratio 32.7 H 29.8 H Cancelled Glucose 87 117 H Cancelled Calcium 7.9 L 7.7 L Cancelled Phosphorus Magnesium Urine Color Urine Clarity Urine pH Ur Specific Slaughter Urine Protein Urine Glucose (UA) Urine Ketones Urine Occult Blood Urine Nitrite Urine Bilirubin Urine Urobilinogen Ur Leukocyte Esterase Urine RBC Urine WBC Ur Squamous Epith Cells Urine Bacteria Urine Mucus Urine Opiates Screen Urine Methadone Screen Ur Barbiturates Screen Ur Phencyclidine Scrn Ur Amphetamines Screen U Methamphetamin-MDMA U Benzodiazepines Scrn Urine Cocaine Screen U Cannabinoids Screen Ur Drug Screen Comment 08/09/18 08/09/18 08/09/18 02:16 05:10 05:10 WBC 9.8 RBC 3.76 L Hgb 12.0 L Hct 33.3 L MCV 88.6 MCH 31.9 MCHC 36.0 RDW 12.5 RDW Differential 40.0 Plt Count 266 MPV 8.9 Sodium 124 L 128 L Potassium 3.2 L 3.8 Chloride 96 L 96 L Carbon Dioxide 21.0 23.0 Anion Gap 7 9 BUN 20 H 18 Creatinine 0.76 0.84 Estim Creat Clear Calc 95.56 86.05 Est GFR (MDRD) Af Amer 136 121 Est GFR (MDRD) Non-Af 112 100 BUN/Creatinine Ratio 26.3 H 21.5 H Glucose 129 H 101 Calcium 7.8 L 8.5 Phosphorus Magnesium Urine Color Urine Clarity Urine pH Ur Specific Slaughter Urine Protein Urine Glucose (UA) Urine Ketones Urine Occult Blood Urine Nitrite Urine Bilirubin Urine Urobilinogen Ur Leukocyte Esterase Urine RBC Urine WBC Ur Squamous Epith Cells Urine Bacteria Urine Mucus Urine Opiates Screen Urine Methadone Screen Ur Barbiturates Screen Ur Phencyclidine Scrn Ur Amphetamines Screen U Methamphetamin-MDMA U Benzodiazepines Scrn Urine Cocaine Screen U Cannabinoids Screen Ur Drug Screen Comment Medical Necessity - Tobacco Use Smoking Status: Current every day smoker Tobacco Use: Cigarettes Assessment/Plan All Active Problems (Last Updated 03/07/18 @ 09:30 by Jose Ruff) Hypophosphatemia (Resolved) Gastroenteritis (Resolved) Hypomagnesemia (Acute) Community acquired pneumonia (Resolved) Thrombocytopenia (Resolved) 1. Acute gastroenteritis - suspect viral - improved. No further nausea/vomiting/diarrhea 2. Hyponatremia 2/2 above complicated by beer potomania - improving - continue IVF overnight. Hypokalemia resolved. 3. Alcohol abuse - CIWA, ativan prn. Not interested in counseling or outpatient services. Continue thiamine,folate 4. Anxiety - ssri 5. Hx of PAfib - toprol, rate controlled. not on oac, not a candidate given alcoholism. Sinus rhythm with 1st degree av block. 6. Nicotine abuse - 1 ppd smoker. Patch if desired. 7. Hx hep c DVT ppx: lovenox DC planning: plan to give fluids overnight and dc if improved in am. This patient was seen by Hubert Berman PA-C under the supervision of Doctor Orion. <Nirmal Sears - Last Filed: 08/09/18 15:40> Subjective: Seen and examined. I was informed by field nurse case manager that patient does not want any alcohol rehab on discharge as nothing works for him in the past and does not want to try any more. Patient has cough and sometimes bring phlegm. - Physical Exam General: Alert, Oriented x3, Cooperative HEENT: Atraumatic, PERRLA, EOMI, Normocephalic Neck: Supple, No JVD, Negative Carotid Bruits Lungs: Clear to auscultation, Diminished, Rhonchi, - - Of Cardiovascular: Regular rate, Regular Rhythm, Normal S1, Normal S2, No murmurs Abdomen: Bowel Sounds Present, Soft, Non Tender, Non-Distended Extremities: No edema, Capillary Refill Less than 3 Seconds Skin: No rashes, No breakdown Musculoskeletal: No Tenderness to Palpation of Joints or Extremities Neurological: Cranial nerves II-XII grossly intact Psych/Mental Status: Normal Affect, Appropriate Vital Signs Temp Pulse Resp BP Pulse Ox 97.9 F 69 16 137/74 H 98 08/09/18 12:10 08/09/18 15:08 08/09/18 12:10 08/09/18 12:10 08/09/18 12:10 Oxygen Delivery Method Room Air Weight: 138 lb 3.677 oz Body Mass Index (BMI) 21.1 Intake and Output for Last 24 Hours 08/07/18 08/08/18 08/09/18 23:59 23:59 23:59 Intake Total 4676 / 4676 2075 / 2075 Output Total 1750 / 1750 1425 / 1425 Balance 2926 / 2926 650 / 650 Microbiology Past 72 Hours 08/08/18 21:00 Gram Stain - Final Sputum, Expectorated/Coughed Respiratory Culture - Preliminary 08/08/18 13:50 Enteric Bacteriology - Final Stool 08/08/18 13:50 C. difficile DNA Amplification - Final Stool 08/08/18 13:50 Stool Lactoferrin - Final Stool Laboratory Tests Past 24 Hrs 08/08/18 08/08/18 08/09/18 18:15 22:15 02:16 WBC RBC Hgb Hct MCV MCH MCHC RDW RDW Differential Plt Count MPV Sodium 120 L Cancelled 124 L Potassium 3.3 L Cancelled 3.2 L Chloride 92 L Cancelled 96 L Carbon Dioxide 19.0 L Cancelled 21.0 Anion Gap 9 Cancelled 7 BUN 27 H Cancelled 20 H Creatinine 0.90 Cancelled 0.76 Estim Creat Clear Calc 80.69 Cancelled 95.56 Est GFR (MDRD) Af Amer 111 Cancelled 136 Est GFR (MDRD) Non-Af 92 Cancelled 112 BUN/Creatinine Ratio 29.8 H Cancelled 26.3 H Glucose 117 H Cancelled 129 H Calcium 7.7 L Cancelled 7.8 L 09/25/18 09/25/18 05:10 05:10 WBC 9.8 RBC 3.76 L Hgb 12.0 L Hct 33.3 L MCV 88.6 MCH 31.9 MCHC 36.0 RDW 12.5 RDW Differential 40.0 Plt Count 266 MPV 8.9 Sodium 128 L Potassium 3.8 Chloride 96 L Carbon Dioxide 23.0 Anion Gap 9 BUN 18 Creatinine 0.84 Estim Creat Clear Calc 86.05 Est GFR (MDRD) Af Amer 121 Est GFR (MDRD) Non-Af 100 BUN/Creatinine Ratio 21.5 H Glucose 101 Calcium 8.5 Assessment/Plan This patient was seen in conjunction with Hubert PRESCOTT. I have independently interviewed and examined the patient and reviewed pertinent history, examination findings, laboratory and plan of management. I have reviewed the note and agree with the documented findings with the few additional points. In brief, patient is admitted for severe acute on chronic hyponatremia with history of chronic alcohol use and GI loss from nausea and vomiting. Potassium is improved and currently 128. K3.8. Platelet count 266. Stool Bacteroides panel, C. difficile, lactoferrin are negative. Preliminary Gram stain of his sputum culture is growing 2+ gram-positive rods and 1+ gram-positive cocci. UA is negative. Chest x-ray PA and lateral ordered Overall, it seems viral gastroenteritis. I have discussed my assessment with Hubert PRESCOTT and orders have been reviewed. Microbiology Past 72 Hours 08/08/18 21:00 Sputum, Expectorated/Coughed Gram Stain - Final 08/08/18 21:00 Sputum, Expectorated/Coughed Respiratory Culture - Preliminary 08/08/18 13:50 Stool Enteric Bacteriology - Final 08/08/18 13:50 Stool C. difficile DNA Amplification - Final 08/08/18 13:50 Stool Stool Lactoferrin - Final Laboratory Results 08/09/18 02:16: Sodium 124 L, Potassium 3.2 L, Chloride 96 L, Carbon Dioxide 21.0, Anion Gap 7, BUN 20 H, Creatinine 0.76, Estim Creat Clear Calc 95.56, Est GFR (MDRD) Af Amer 136, Est GFR (MDRD) Non-Af 112, BUN/Creatinine Ratio 26.3 H, Glucose 129 H, Calcium 7.8 L 08/09/18 05:10: WBC 9.8, RBC 3.76 L, Hgb 12.0 L, Hct 33.3 L, MCV 88.6, MCH 31.9, MCHC 36.0, RDW 12.5, RDW Differential 40.0, Plt Count 266, MPV 8.9 08/09/18 05:10: Sodium 128 L, Potassium 3.8, Chloride 96 L, Carbon Dioxide 23.0, Anion Gap 9, BUN 18, Creatinine 0.84, Estim Creat Clear Calc 86.05, Est GFR (MDRD) Af Amer 121, Est GFR (MDRD) Non-Af 100, BUN/Creatinine Ratio 21.5 H, Glucose 101, Calcium 8.5 Code Visit Inpatient E&M: 22080 Subs Hosp L3
--- NOTE | 2018-08-09 15:55 | RAD_ITS ---
STUDY: X-RAY CHEST REASON FOR EXAM: Male, 58 years old. Cough TECHNIQUE: PA and lateral views of the chest. COMPARISON: Prior study of 11/18/2017 FINDINGS: independent distributor leads are present. The lungs are hyperinflated. There is no demonstrated pleural abnormality. Normal size heart. Normal mediastinum and alex. Normal visualized pulmonary arteries. There are calcified plaques of the aortic arch. Normal visualized thoracic spine. Normal visualized ribs, clavicles, and shoulders. There is no demonstrated abnormality of the visualized soft tissue structures of the upper abdomen. RAD/Chest PA and Lateral IMPRESSION: 1. Hyperinflated lungs suggestive of COPD. 2. Calcified plaques of the aortic arch. 3. No acute cardiopulmonary disease process is seen. Chest findings are stable in the interval. Electronically Signed: Dominick Lopez MD at 16:15 EDT , Service support ,
[2018-08-10] VITALS (10 sets, daily range): BP systolic 128–153; BP diastolic 71–83; PULSE 73–88; RESP 16–20; TEMP 36.6–36.8; O2SAT 93–98
[2018-08-10] MEDS: Ipratropium/Albuterol Sulfate 3 ML AMPUL.NEB INHALATION (04:05)
--- NOTE | 2018-08-10 04:09 | CPS ---
patient requested prn treatment at time of visit due to sob.
[2018-08-10] MEDS: amLODIPine 10 MG Tablet PO (08:57)
[2018-08-10] MEDS: Metoprolol(XL)Succ 100 MG Tablet PO (08:57)
[2018-08-10] MEDS: Pantoprazole Sodium 20 MG Tablet PO (08:57)
[2018-08-10] MEDS: Lisinopril 20 MG Tablet PO (08:57)
[2018-08-10] MEDS: Thiamine Hydrochloride 100 MG Tablet PO (08:58)
[2018-08-10] MEDS: Folic Acid 1 MG Tablet PO (08:58)
[2018-08-10] MEDS: Enoxaparin 40 MG/0.4 ML Syringe SC (08:58)
[2018-08-10] MEDS: Citalopram 20 MG Tablet PO (08:58)
[2018-08-10] MEDS: Multivitamins,Ther W-Minerals Tablet 1 TABLET PO (08:58)
[2018-08-10] MEDS: Gabapentin 600 MG Tablet PO ×2 (08:58→11:51)
--- NOTE | 2018-08-10 11:43 | DCINST_ITS ---
You will use the following diet at home:: Cardiac, Other - discontinue use of alcohol Your food should be the consistency of: Regular Your liquids should be the consistency of: Regular/Thin Discharge Activity: Return to Normal Activity Allergies/Adverse Reactions: Allergies Penicillins Adverse Reaction (Verified 08/08/18 10:18) Other Medications to take at Discharge Albuterol Inhaler [Ventolin Hfa] 1 puff INHALATION Q6H PRN PRN 08/08/18 Albuterol Inhaler [Ventolin Hfa] 2 puff INHALATION Q4H PRN PRN 08/08/18 Amlodipine [Norvasc] 10 mg PO DAILY 08/08/18 Aspirin E.C. [Ecotrin] 325 mg PO DAILY@0800 08/08/18 Cholecalciferol (Vitamin D3) [Vitamin D3] 2,000 unit PO QWEEK 08/08/18 Citalopram [Celexa] 20 mg PO DAILY 08/08/18 Doxazosin Mesylate 2 mg PO QHS 08/08/18 Fluticasone/Salmeterol [Advair 100-50 Diskus] 1 each IH BID 08/08/18 Gabapentin [Neurontin] 600 mg PO TIDCM 08/08/18 Lisinopril [Zestril] 20 mg PO BID 08/08/18 Metoprolol Succinate [Toprol Xl] 100 mg PO DAILY 08/08/18 Nystatin 5 ml PO 4X/DAY 08/08/18 Pantoprazole Sodium [Protonix] 20 mg PO DAILY 08/08/18 proMETHazine tablet [Phenergan tablet] 25 mg PO Q6H PRN PRN 08/08/18 Folic Acid 1 mg PO DAILY@0800 #14 tablet 08/10/18 Multivitamins,Ther W-Minerals [Multivitamin With Minerals] 1 tablet PO DAILYCM tablet 08/10/18 Thiamine Hydrochloride [Vitamin B1] 100 mg PO DAILY #14 tablet 08/10/18 The following prescriptions were given: Folic Acid 1 mg PO DAILY@0800 #14 tablet Thiamine Hydrochloride [Vitamin B1] 100 mg PO DAILY #14 tablet Primary Care Physician: Lloyd Herrera MD [Primary Care Provider] - Please follow up with your Primary Care Physician in: 1-2 weeks Test Results: Test results from this visit will be discussed in further detail at your follow- up appointment, if applicable. Proposed Discharge Date: 08/10/18
--- NOTE | 2018-08-10 14:44 | DS.PCM_ITS ---
<Hubert Berman - Last Filed: 08/10/18 14:40> Discharge Date and Diagnosis Date of Admission: 08/08/18 Date of Discharge: 08/10/18 - Primary Discharge Diagnosis Severe hyponatremia secondary to GI loss suspected acute gastroenteritis-viral, and beer pyromania Alcohol abuse Hypokalemia Nicotine abuse Anxiety and depression Paroxysmal atrial fibrillation History of hepatitis C - Secondary Discharge Diagnosis Chronic Problems (Last Updated 03/07/18 @ 09:30 by Jose Ruff) Hyponatremia (Chronic) Poor dental hygiene (Chronic) Atrial fibrillation (Chronic) Tobacco abuse (Chronic) COPD (chronic obstructive pulmonary disease) (Chronic) Hypertension (Chronic) Cannabis abuse (Chronic) Chronic hepatitis C (Chronic) Continuous chronic alcoholism (Chronic) Hospital Course and Treatment Imaging Results: CT/Abdomen/Pelvis without Cont IMPRESSION: Nonspecific bilateral perinephric stranding. Stable compression fracture of the L4 vertebra. No acute abnormalities RAD/Chest PA and Lateral IMPRESSION: 1. Hyperinflated lungs suggestive of COPD. 2. Calcified plaques of the aortic arch. 3. No acute cardiopulmonary disease process is seen. Chest findings are stable in the interval. Consults: Court Clerk - Yohan Operations: None Procedures: None Summary of Care Provided: Physical exam on day of discharge: General: Resting comfortably NAD Psych: A/Ox3 normal affect HEENT: PEARRLA AT NC Neck: Supple NT CV: RRR no m/t/r/g/h Resp: CTA Abd: [id number] Soft NT no guarding or rigidity Ext: DP2+= no edema Skin: W/D normal turgor Lymph/Heme: No active bleeding or adenopathy Neuro: CN2-12 intact Hospital course: The patient is a 58 year old M with a history of alcohol abuse, hepatitis C, paroxysmal atrial fibrillation, who presented to the emergency room with chief complaint of nausea, vomiting, diarrhea ?4 days. He is a heavy drinker, states his whole life, drinking about 10 beers a day currently. He is found to be severely hyponatremic with sodium of 115, he was also hypokalemic with potassium of 3.2. He was admitted and placed in the ICU with consult to the incentive junior software developer. He is provided supportive care with antiemetics and IV fluids. Is placed on C1 protocol and given IV Ativan as needed. He was transitioned to the PCU with no further issues. He was maintained on IV fluids and his sodium gradually improved. He was offered information for counseling and alcohol cessation however he declined and indicated that he had been drinking his whole life and had no plans to discontinue alcohol use at discharge. As he had no further symptoms, complete resolution of his nausea, vomiting, diarrhea and improvement in his electrolytes he was discharged home in stable condition. He will need to follow-up with his PCP in 1-2 weeks. This patient was seen by Hubert Berman PA-C under the supervision of Doctor Oroin. [] Discharge Diet: Low fat/ Low Cholesterol, 2000 mg Sodium Diet, - - discontinue alcohol use Discharge Activity: Return to Normal Activity Home Medications: Medications to take at Discharge Albuterol Inhaler [Ventolin Hfa] 1 puff INHALATION Q6H PRN PRN 08/08/18 Albuterol Inhaler [Ventolin Hfa] 2 puff INHALATION Q4H PRN PRN 08/08/18 Amlodipine [Norvasc] 10 mg PO DAILY 08/08/18 Aspirin E.C. [Ecotrin] 325 mg PO DAILY@0800 08/08/18 Cholecalciferol (Vitamin D3) [Vitamin D3] 2,000 unit PO QWEEK 08/08/18 Citalopram [Celexa] 20 mg PO DAILY 08/08/18 Doxazosin Mesylate 2 mg PO QHS 08/08/18 Fluticasone/Salmeterol [Advair 100-50 Diskus] 1 each IH BID 08/08/18 Gabapentin [Neurontin] 600 mg PO TIDCM 08/08/18 Lisinopril [Zestril] 20 mg PO BID 08/08/18 Metoprolol Succinate [Toprol Xl] 100 mg PO DAILY 08/08/18 Nystatin 5 ml PO 4X/DAY 08/08/18 Pantoprazole Sodium [Protonix] 20 mg PO DAILY 08/08/18 proMETHazine tablet [Phenergan tablet] 25 mg PO Q6H PRN PRN 08/08/18 Folic Acid 1 mg PO DAILY@0800 #14 tablet 08/10/18 Multivitamins,Ther W-Minerals [Multivitamin With Minerals] 1 tablet PO DAILYCM tablet 08/10/18 Thiamine Hydrochloride [Vitamin B1] 100 mg PO DAILY #14 tablet 08/10/18 Following Prescrptions Were Given to Patient: Folic Acid 1 mg PO DAILY@0800 #14 tablet Thiamine Hydrochloride [Vitamin B1] 100 mg PO DAILY #14 tablet Primary Care Physician: Lloyd Herrera MD [Primary Care Provider] - Please follow up with your Primary Care Physician in: 1-2 weeks Please Follow Up With: Lloyd Herrera MD Disposition: Home Minutes spent on discharge:: 35 Patient Condition:: Stable Medical Necessity - Tobacco Use Smoking Status: Current every day smoker Tobacco Use: Cigarettes Meaningful Use Info Meaningful Use Diagnoses (Choose all that apply): None applicable <Nirmal Sears - Last Filed: 08/10/18 17:14> Discharge Date and Diagnosis - Secondary Discharge Diagnosis Chronic Problems (Last Updated 03/07/18 @ 09:30 by Jose Ruff) Hyponatremia (Chronic) Poor dental hygiene (Chronic) Atrial fibrillation (Chronic) Tobacco abuse (Chronic) COPD (chronic obstructive pulmonary disease) (Chronic) Hypertension (Chronic) Cannabis abuse (Chronic) Chronic hepatitis C (Chronic) Continuous chronic alcoholism (Chronic) Hospital Course and Treatment Summary of Care Provided: Seen and examined today Patient does not want to quit alcohol. Currently is good and refused all outpatient or further alcohol rehab program. He said he will start drinking after 3 days. On exam []General: Alert, Oriented x3, Cooperative, moderate protein calorie malnutrition HEENT: Atraumatic, PERRLA, EOMI, Normocephalic Neck: Supple, No JVD, Negative Carotid Bruits Lungs: Clear to auscultation, Diminished, Rhonchi, - - Of Cardiovascular: Regular rate, Regular Rhythm, Normal S1, Normal S2, No murmurs Abdomen: Bowel Sounds Present, Soft, Non Tender, Non-Distended Extremities: No edema, Capillary Refill Less than 3 Seconds Skin: No rashes, No breakdown Musculoskeletal: No Tenderness to Palpation of Joints or Extremities Neurological: Cranial nerves II-XII grossly intact Psych/Mental Status: Normal Affect, Appropriate This patient was seen in conjunction with Hubert PRESCOTT. I have independently interviewed and examined the patient and reviewed pertinent history, examination findings, laboratory and plan of management. I have reviewed the note and agree with the documented findings with the few additional points. In brief, patient is admitted for severe acute on chronic hyponatremia with history of chronic alcohol use and GI loss from nausea and vomiting. Potassium is improved and currently 128. K3.8. Platelet count 266. Stool Bacteroides panel, C. difficile, lactoferrin are negative. Final sputum culture shows mixed normal respiratory hamlet. UA is negative. Chest x-ray PA and lateral ordered Overall, it seems viral gastroenteritis. Discharge medication reconciliation done. Discharge follow-up instructions completed. Total time spent, exact 35 minutes on discharge meds reconciliation, examination, review of imaging and blood test and discussion with the patient on follow-up instructions. I have discussed my assessment with Hubert PRESCOTT and orders have been reviewed. Code Visit Inpatient E&M: 54823 Disch Hosp
--- NOTE | 2018-08-11 15:37 | CASEMGMT ---
[facility] TRAN Discharge F/U Phone Call LACE: 11 Strata: 3 Discharge date: 08/10/18 Call date: 08/11/18 Call time: [id number] Duration: 3 minutes Admission dx: Severe hyponatremia Pt's answered phone and stated that pt is unable to come to phone at this time. Per , pt has been feeling 'pretty good' and was out mowing the lawn this morning. states no questions regarding discharge instructions or pt's medications at this time. voices no further questions/concerns/needs at this time. [place] [facility]
== END 2018-08-10 13:25 | disposition home or self-care (01) | DRG 640 ==
LOC: ED 10:47 → ICU 12:53 → PCU 23:41
PROVIDERS: Family Medicine; Admitting Provider Internal Medicine; Emergency Provider Emergency Medicine; Family Provider Family Medicine; PCP Family Medicine; Visit Provider Internal Medicine
DX: E87.1 Hypo-osmolality and hyponatremia (principal); E43 Unspecified severe protein-calorie malnutrition; A08.4 Viral intestinal infection, unspecified; E87.6 Hypokalemia; F17.210 Nicotine dependence, cigarettes, uncomplicated; F41.9 Anxiety disorder, unspecified; F32.9 Major depressive disorder, single episode, unspecified; I48.0 Paroxysmal atrial fibrillation; B18.2 Chronic viral hepatitis C; J44.9 Chronic obstructive pulmonary disease, unspecified; I10 Essential (primary) hypertension; F12.10 Cannabis abuse, uncomplicated; F10.20 Alcohol dependence, uncomplicated; Z68.21 Body mass index [BMI] 21.0-21.9, adult
CPT/HCPCS: 36415; 71046; 74176; 80048; 80076; 80307; 80320; 81001; 83630; 83690; 83735; 84100; 85025; 85027; 85610; 85730; 87070; 87086; 87088; 87205; 87493; 87506; 92526; 93005; 94640; 94667; 97802; 99285; J7030; A4216; G0480; J2405

== ENCOUNTER 2019-04-04 10:59 | Emergency (ER) | payer MEDICARE, SELFPAY ==
[2019-04-04 11:00] VITALS: BP 189/152; PULSE 88; RESP 20; TEMP 36.6; O2SAT 98; BMI 20.7
--- NOTE | 2019-04-04 11:28 | RAD_ITS ---
STUDY: X-RAY CHEST REASON FOR EXAM: Male, 59 years old. One-week history of chest congestion and cough. TECHNIQUE: PA and lateral views of the chest. COMPARISON: Comparison is made with prior examination dated August 09, 2018. FINDINGS: EKG electrodes are seen. Hyperinflation. The lungs are clear. There is no demonstrated pleural abnormality. Normal size heart. Normal mediastinum and alex. Normal visualized pulmonary arteries. There is atherosclerotic calcification of the aortic arch with tortuosity. Normal visualized thoracic spine. Healing right ninth rib fracture. There is no demonstrated abnormality of the visualized soft tissue structures of the upper abdomen. RAD/Chest PA and Lateral IMPRESSION: Hyperinflation. The lungs are clear. Electronically Signed: Gordy Lang, at 13:08 EDT , Service support ,
--- NOTE | 2019-04-04 11:28 | EKG12_ITS ---
Test Reason : SOB Blood Pressure : / mmHG Vent. Rate : 061 BPM Atrial Rate : 061 BPM P-R Int : 254 ms QRS Dur : 086 ms QT Int : 418 ms P-R-T Axes : 076 011 076 degrees QTc Int : 420 ms Sinus rhythm with 1st degree A-V block Otherwise normal ECG Confirmed by LILIANA MORENO, DONNA ([id number]), newspaper managing editor JONATAN ACEVEDO ([id number]) on 04/06/2019 1:30:30 PM Referred By: ESA Confirmed By:DONNA FORD MD
[2019-04-04] MEDS: 0.9% Normal Saline 1,000 ML 150 ML IV (11:43)
[2019-04-04] MEDS: MethylPREDNISolone 125 MG/2 ML Vial IV (11:43)
[2019-04-04] MEDS: Albuterol 2.5 MG/3 ML VIAL.NEB. INHALATION ×2 (11:43)
[2019-04-04] MEDS: Ipratropium/Albuterol Sulfate 3 ML AMPUL.NEB INHALATION (11:43)
[2019-04-04 11:45] VITALS: PULSE 63; RESP 16
[2019-04-04 11:53] LABS: Absolute Lymphocyte Count 1.68 X10^3/ul (0.83-4.51); Absolute Neutrophil Count 5.5 X10^3/uL (2.0-7.7); Basophil# 0.02 X10^3/uL; Basophil% 0.2 % (0-1); Eosinophils% 2.3 % (0-5); Hematocrit 37.6 % (40-54); Hemoglobin 13.7 g/dl (13.0-16.5); Lymphocyte # 1.68 X10^3/ul (4.0); Mean Corp Hgb Conc 36.4 g/gl (32-36); Mean Corpuscular Hgb 32.1 pg (27.0-32.0); Mean Corpuscular Volume 88.1 fL (80-94); Mean Platelet Vol. 9.2 fl (6.2-12.0); Monocyte# 1.32 X10^3/uL; Monocyte% 14.9 % (0-10); Neutrophil # 5.52 X10^3/uL (2.7-7.7); Neutrophil % 62.6 % (47-70); POSITIVE COUNT NO; POSITIVE DIFFERENTIAL NO; POSITIVE MORPHOLOGY NO; Platelet Count 252 K/mm3 (150-450); RBC Distribution Width CV 11.5 % (11.6-14.6); RBC Distribution Width SD 36.8 fl (35.1-43.9); Red Blood Count 4.27 M/mm3 (4.6-6.2); White Blood Count 8.8 K/mm3 (4.4-11.0)
[2019-04-04 12:06] LABS: Anion Gap 10 (5-15); BUN 7 mg/dL (7-18); BUN/Creat Ratio 9.6 RATIO (10-20); Chloride 85 mmol/L (98-107); Creatinine, Serum 0.73 mg/dL (0.70-1.30); EST Glomerular Filtration Rate 118 mL/min (>60); Est Glom Filt Rate - Afr Amer 143 mL/min (>60); Estimated Creatinine Clearance 99.07 ml/min; Glucose 81 mg/dL (74-106); Potassium 3.1 mmol/L (3.5-5.1); Sodium Level 121 mmol/L (136-145)
--- NOTE | 2019-04-04 12:12 | ED.VISSUMM ---
- ER Visit Summary Date of Service: 04/04/19 Chief Complaint: Cough and congestion History of Present Illness: The patient is a 59 M with a history of COPD, A. fib, alcoholism. Patient presents with congestion and cough with white sputum production for the past 1 week. He has had subjective fever. He does report increased wheezing, but has not been using his inhalers any more than normal. Physical Examination: Blood pressure is 189/152, otherwise vitals normal. Pulse ox is 98% on room air. Patient sitting upright in bed no acute distress. He speaking full sentences. Head neck examination unremarkable. Heart is regular rate and rhythm. Lung sounds are with expiratory wheezes and rales throughout. Abdomen is soft and nontender. Test Results: EKG is sinus at 60 with a first-degree AV block. No acute ischemia. Two-view chest x-ray shows hyperinflation. Lungs are clear. CBC is normal. Chemistry studies reveal a sodium of 121. He has chronic hyponatremia this is actually improved when compared to his priors. Potassium is 3.1. Emergency Department Course and Treatment: Patient was given aerosols along with IV Solu-Medrol. He was given oral potassium replacement. On repeat evaluation wheezing is significantly improved. He continues to have some rales throughout. He will be treated with course of doxycycline along with prednisone and potassium replacement. He is asking about narcotic pain medication for chronic back pain. He states his primary care physician used to write him for this but has recently stopped. I will give him phone numbers for pain management. Treatment Plan: [] Disposition: Discharge Impression: 1. COPD exacerbation 2. Hypokalemia 3. Chronic hyponatremia This note was generated with [email or web address][employer]be dictation software. It may contain incorrect words, spelling, and punctuation that were not noted in review of the chart prior to signing ED Disposition - Plan for ED Patient: Disposition: Home or Assisted Living Instructions: ED COPD Flare, ED Potassium Deficiency Prescriptions: Prednisone 10 mg PO UD #33 tablet Doxycycline 100 mg PO BID #20 capsule Potassium Chloride [K-Dur] 20 meq PO BID #10 tablet Referrals: Lloyd Herrera MD [Primary Care Provider] - 1 Week Dangelo Campo MD [STAFF PHYSICIAN] - As Needed Jose Taylor [NON-STAFF] - As Needed
[2019-04-04 13:02] VITALS: BP 142/88; PULSE 76; RESP 16; O2SAT 96
[2019-04-04 13:50] VITALS: BP 149/103; PULSE 93; RESP 20; O2SAT 95
[2019-04-04] MEDS: Doxycycline 100 MG CAPSULE PO (13:53)
== END 2019-04-04 13:56 | disposition home or self-care (01) ==
PROVIDERS: Emergency Provider Emergency Medicine; Family Provider Family Medicine; PCP Family Medicine
DX: J44.1 Chronic obstructive pulmonary disease with (acute) exacerbation (principal); E87.6 Hypokalemia; E87.1 Hypo-osmolality and hyponatremia; I10 Essential (primary) hypertension; I48.91 Unspecified atrial fibrillation; J44.9 Chronic obstructive pulmonary disease, unspecified; Z72.0 Tobacco use; I44.0 Atrioventricular block, first degree; G89.29 Other chronic pain; M54.9 Dorsalgia, unspecified; F10.20 Alcohol dependence, uncomplicated
CPT/HCPCS: 71046; 80048; 85025; 93005; 94640; 96361; 96374; 99285; J7030

== ENCOUNTER 2019-11-01 05:26 | Day surgery (SDC) | payer MEDICARE, SELFPAY ==
--- NOTE | 2019-10-31 18:28 | PCM.HP.BLA ---
History and Physical Date of Admission: 11/01/19 HISTORY AND PHYSICAL ? Tray Acevedo 1960 ? REFERRING PHYSICIAN: ??Lloyd Herrera MD ? CHIEF COMPLAINT: ??Established Patient (Update H&P Colonoscopy/ EGD) ? HPI: The patient is a 59 year old male referred for endoscopy.??Patient was evaluated on 09/08/19. ?Per my H&P at that time: ? The patient is a 59 year old male referred for endoscopy. ?Tray notes no colon complaints. Patient denies any change in bowel habits, weight changes, blood in stools, black tarry stools or abdominal pain.??Denies?family history of colon issues. ? The patient?NOTES frequent heartburn and takes pantoprazole with some improvement. ?He drinks [id number] alcoholic beverages daily for years. ?He is a current everyday smoker, 2 packs per day. ? Tray?has not?undergone prior endoscopy. ? ? Patient's past medical history is significant for COPD, hepatitis C, hypertension, epilepsy, occasional marijuana use. ?He is supposed to use supplemental oxygen at night. ?Uses inhaler regularly for his COPD. ?He follows with Dr. Herrera for his chronic medical conditions. ? Patient presents for update H&P for procedures scheduled for 11/01/19.???The patient denies any significant change to his overall health since his last visit. ?His past medical history, past surgical history, medications and allergies are up to date as of this visit. ? ? PAST MEDICAL HISTORY PAST MEDICAL HISTORY Diagnosis Date ? Alcohol abuse, continuous ? ? Degeneration of lumbar or lumbosacral intervertebral disc ? ? Disorders of bilirubin excretion ? ? Dyspepsia and other specified disorders of function of stomach ? ? Esophageal reflux ? ? Essential hypertension, benign ? ? Hematuria ? ? Hepatitis C ? ? Lumbago ? ? Nonspecific elevation of levels of transaminase or lactic acid dehydrogenase (LDH) ? ? Orchitis and epididymitis, unspecified ? ? ? PAST SURGICAL HISTORY PAST SURGICAL HISTORY Procedure Laterality Date ? HEMORRHOID;BAND LIGAT, SNGL/MUL ? ? ? PAST SURGICAL HISTORY OF ? 1994 ? head injury/coma x 9 days ? PAST SURGICAL HISTORY OF Left 03/15/2018 ? Left wrist surgery, plate put in by Dr. Alexander ? REMOVAL OF TONSILS,<12 Y/O ? ? ? Tonsillectomy ? ? CURRENT MEDICATIONS Current Outpatient Medications Medication Sig ? pantoprazole DR (PROTONIX) 20 mg tablet Take 1 tablet by mouth twice daily. ? thiamine (VITAMIN B1) 100 mg tablet Take 1 tablet by mouth once daily. ? folic acid 1 mg tablet Take 1 tablet by mouth once daily. ? gabapentin (NEURONTIN) 600 mg tablet Take 1 tablet by mouth three times daily for 30 days. ? albuterol HFA (PROAIR HFA) 90 mcg/actuation inhaler Inhale 2 Puffs as instructed four times daily as needed. ? fluticasone-salmeterol (ADVAIR DISKUS) 100-50 mcg/dose dsdv Inhale 1 Puff as instructed twice daily. Rinse mouth out after use with water. ? lisinopril (ZESTRIL, PRINIVIL) 20 mg tablet Take 1 tablet by mouth twice daily. ? promethazine (PHENERGAN) 25 mg tablet TAKE 1 TABLET EVERY 6 HOURS NEEDED FOR NAUSEA AND VOMITING ? metoprolol succinate ER (TOPROL XL) 100 mg Tb24 Take 1 tablet by mouth once daily. ? amLODIPine (NORVASC) 10 mg tablet Take 1 tablet by mouth once daily. ? citalopram (CELEXA) 20 mg tablet Take 1 tablet by mouth once daily. ? multivitamin tablet Take 1 tablet by mouth once daily. ? albuterol (PROVENTIL) 2.5 mg /3 mL (0.083 %) nebulizer solution Use 3 mL via nebulizer every 4 hours as needed for Wheezing/Shortness of Breath. Use over 5-15minutes. ? COMPOUNDED PRESCRIPTION OTC Vitamin D2 - 4000 every 4 days ? nystatin (MYCOSTATIN) 100,000 unit/mL suspension Take 1 mL by mouth four times daily. 1tsp swish in mouth for several minutes, then swallow (or expectorate) 4 times daily until gone. ? doxazosin (CARDURA) 2 mg tablet Take 1 tablet by mouth once daily. ? ASPIRIN 325 MG TAB Take one(1) tablet daily. ? OXYGEN, HOME THERAPY, Inhale 2 L/min as instructed as directed. ? No current facility-administered medications for this visit.? ? ALLERGIES:?Penicillins ? PERSONAL HISTORY:? SOCIAL HISTORY Social History ? Tobacco Use ? Smoking status: Current Every Day Smoker ? ? Packs/day: 2.00 ? ? Years: 34.00 ? ? Pack years: 68.00 ? ? Types: Cigarettes ? Smokeless tobacco: Never Used Substance Use Topics ? Alcohol use: Yes ? ? Comment: 12 pack a day ? Drug use: Yes ? ? Types: Marijuana ? ? Comment: marijuana, uses socially only ? FAMILY HISTORY:? FAMILY HISTORY FAMILY HISTORY Problem Relation Age of Onset ? Diabetes Mother ? ? Hypertension Mother ? ? Heart disease Mother ? ? Hypertension Father ? ? Stroke Father ? ? Kidney Disease Father ? ? Heart disease Father ? ? Alcohol/Drug Sister ? ? Cancer Paternal Grandmother ?luekemia ? REVIEW OF SYMPTOMS: ??The review of systems data was entered by the nurse and reviewed by me ? Nursing Notes: Wiliam Galan STAVE BLOCK ROLLER ?10/25/2019 ?8:14 AM ?Signed REVIEW OF SYSTEMS: ?General:???The patient NOTES fatigue, NOTES weight loss, denies weight gain, denies feeling hot, and denies feelings of cold. ?Eyes: ?The patient denies glaucoma, denies eye injury/surgery, does not wear glasses or contacts. ?Ear/Nose/Throat: ?The patient denies allergies, denies hayfever, denies ear infections, and denies bloody noses. ?Cardiovascular: ?The patient denies chest pain, denies heart disease, NOTES high blood pressure,denies cardiac stent, denies prior heart attack, denies irregular heart beat, denies high cholesterol, ?denies poor circulation, denies heart failure, other cardiac issues, denies claudication, denies cold feet, denies peripheral arterial stent. ?Respiratory: ?The patient denies tuberculosis, denies pneumonia, denies frequent cough, denies pulmonary embolism, NOTES shortness of breath, and denies coughing up blood. ?Gastrointestinal: ?The patient denies difficulty swallowing, NOTES acid reflux, denies ulcers, denies vomiting, denies jaundice/hepatitis, denies gallbladder problems, denies black or tarry stools, denies hemorrhoids, denies bleeding from rectum, denies diverticulitis, denies constipation, NOTES diarrhea, denies loss of stool control, and denies hernias. ?Kidney/Bladder: ?The patient denies kidney stones, denies urine infections, and denies bloody urine. ?Skin: ?The patient denies a history of skin cancer, denies bleeding/changing moles, and denies a history of skin rash. ?Neurologic: ?The patient denies a history of epilepsy/convulsions, denies headaches, denies head/spinal injuries, and denies stroke/TIA. ?Psychiatric: ?The patient denies psychiatric medications, denies depression, and denies voices, NOTES substance abuse. ?Endocrine: ?The patient denies thyroid disorders, denies diabetes, and denies hormonal problems. ?Hematologic: ?The patient NOTES a history of bruising, denies bleeding, and denies anemia, denies blood clots. ?Infections: ?The patient denies a history of measles and mumps, denies rheumatic fever, and denies sexually transmitted diseases. ?Musculoskeletal: ?The patient NOTES back pain/injury, denies back problems, denies sciatica, denies knee/foot trouble, denies arthritis, or denies gout.? I have confirmed and edited as necessary, the PFSH and ROS obtained by others. ? ? PHYSICAL EXAMINATION: ? General: ?The patient is 59 year old male, well nourished, well hydrated in no acute distress. ?The patient is oriented to time, place, and person. ? VITALS:?Blood pressure 138/82, pulse 80, temperature 36.9 ?C (98.5 ?F), height 172.7 cm (5' 8), weight 66.2 kg (146 lb), SpO2 99 %.?Body mass index is 22.2 kg/m?.? ? HEENT: ?Normal cephalic, ataumatic, pupils are equally round, sclera are anicteric, mucous membranes are moist, oropharynx is clear. ?Neck has no masses, asymmetry or lymphadenopathy. ? ? Respiratory: ?Clear to auscultation and percussion. ?Normal respiratory excursion and pattern. ? Cardiac: ?Examination is regular rate and rhythm. ?Normal S1/S2 ? Abdominal exam: ?Soft, nontender, ?with no palpable masses. ?No hepatosplenomegaly. ?No palpable hernias. ? Extremities: ?no clubbing, cyanosis or edema. ?No adenopathy. ? LABORATORY VALUES: As Noted ? RADIOLOGIC STUDIES: ?As Noted ? ? Assessment ? IMPRESSION:?need for screening?colonoscopy,?heartburn,?alcohol abuse, tobacco abuse-recommend EGD in addition to colonoscopy ? PLAN: ?I have reviewed my findings with the surgeon. ?Proceed with upper and lower endoscopy as scheduled.??We discussed the risks and benefits of the planned endoscopy. ?I have informed the patient that complications can occur including failure to complete the endoscopy and perforation. ?The patient had the opportunity to ask questions concerning the planned endoscopy. ?My staff has also explained the procedure to the patient in understandable terms and has given the patient printed material concerning the procedure. ?The patient freely consents to surgery. ? I plan to use?Golytely?bowel preparation ? The patient has medical comorbidities for which we will plan for the procedure to be performed under Monitored Anesthetic Care. ? ? Diagnoses:?(Z12.11) Encounter for screening for malignant neoplasm of colon ?(primary encounter diagnosis) (R12) Heartburn (F10.10) Alcohol abuse (Z72.0) Tobacco abuse (J44.9) Chronic obstructive airway disease with asthma (HCC) ? ? Kylie Abebe PA-C
[2019-11-01 05:49] VITALS: BP 185/93; PULSE 99; RESP 16; TEMP 36.8; O2SAT 98; BMI 20.7
[2019-11-01] MEDS: Lactated Ringers 1,000 ML 100 ML IV (06:12)
--- NOTE | 2019-11-01 06:30 | EGD_PTH ---
PATIENT: AURY AREVALO LOC: EN U#:[id number] AGE/SX: 59/M ROOM: RE11/01/[address]: Dr. Saw Hand MD : 1960 BED: DIS: 11/01/2019 SPEC #: [id number] RECD: 11/01/19 08:28 STATUS: LUISANA JULIETH #: [id number] URBAN: 11/01/19 06:[address]: Saw Hand DEPT: SURGICAL PATHOLOGY RECD BY: Kyle Mason ENTERED: 11/01/19 12:06 SP TYPE: EGD BIOPSY OT DR: Dr. Lloyd Herrera MD Tissues: A - Gastric mucous membrane B - Gastric mucous membrane C - Cecum, NOS D - POLYP Procedures: Special Stain Group II Surgery Specimen Level IV Alcian Blue/PAS (control) HEADER OPERATION: Colonoscopy, EGD ([facility] [place]) PRE-OP DIAGNOSIS: GERD, screening TISSUE SUBMITTED: A. Antral biopsy for H. pylori and pathology, B. GE junction biopsy, C. Cecal biopsy, D. Polyp, 20 cm MICROSCOPIC DIAGNOSIS A. Antral biopsy: Mild gastritis. See microscopic description and comment. B. GE junction, biopsy: A fragment of gastric mucosa with mild chronic inflammation. Intestinal metaplasia (goblet cell metaplasia) is not identified. See comment. C. Cecal biopsy: A fragment of colonic mucosa, no pathologic diagnosis. D. Colon, 20 cm polyp, biopsy: Hyperplastic polyp. SJ:kimberley 11/02/19 COMMENT A. The results of immunohistochemistry for Helicobacter pylori will be reported separately ([id number]). B. Alcian blue/PAS stain with matched control is used in the evaluation of the specimen. A. MICROSCOPIC DESCRIPTION Slides are reviewed. A. The specimen shows fragments of gastric mucosa with chronic inflammatory cell infiltrates in the lamina propria consisting of lymphocytes and plasma cells, consistent with mild chronic gastritis. GROSS DESCRIPTION A - Received in fixative is one container labeled with the patient's name and designated antral biopsy. The specimen consists of one irregular fragment of light del rosario soft tissue that measures 0.3 x 0.3 x 0.1 cm. The specimen is totally submitted in one cassette. B - Received in fixative is one container labeled with the patient's name and designated GE junction biopsy. The specimen consists of one irregular fragment of light del rosario soft tissue that measures 0.3 x 0.2 x 0.1 cm. The specimen is totally submitted in one cassette. C - Received in fixative is one container labeled with the patient's name and designated cecal biopsy. The specimen consists of one irregular fragment of light del rosario soft tissue that measures 0.2 x 0.2 x 0.1 cm. The specimen is totally submitted in one cassette. D - Received in fixative is one container labeled with the patient's name and designated 20 cm polyp. The specimen consists of a del rosario-pink polyp measuring 0.5 x 0.5 x 0.2 cm. The specimen is totally submitted in one cassette. / SJ:rg 11/01/19 TC:3 CPT: 85705 x4, 57085
--- NOTE | 2019-11-01 06:30 | IMM_PTH ---
PATIENT: AURY AREVALO LOC: EN U#:[id number] AGE/SX: 59/M ROOM: RE11/01/[address]: Dr. Saw Hand MD : 1960 BED: DIS: 11/01/2019 SPEC #: [id number] RECD: 11/01/19 11:53 STATUS: LUISANA REQ #: [id number] URBAN: 11/01/19 06:[address]: Saw Hand DEPT: IMMUNOHISTOCHEMISTRY RECD BY: Kaylyn Oates ENTERED: 11/01/19 11:54 SP TYPE: IMMUNO OTHR DR: Dr. Lloyd Herrera MD Tissues: A - Stomach, NOS Procedures: H Pylori (initial) PHYSICIAN & INSTITUTION [place] [id number] SPECIMEN INFORMATION: Tissue Source: A - Antral biopsy Clinical Info: GERD, screening Specimen Number: [id number] CPT code: 95623 METHODOLOGY: Deparaffinized sections of prefer/formalin-fixed tissue or PAP/DQ stained slides are incubated with monoclonal/polyclonal antibodies/oligonucleotide probes. Localization is made via biotin free immunoperoxidase method. Appropriate controls are performed and reacted as expected. Results on target cell population are indicated in the following table: RESULTS: ANTIBODY / CLONE RESULT Block A H Pylori (polyclonal) negative These tests were developed and their performance characteristics determined by [facility]. They may not have been cleared or approved by the U.S. Food and Drug Administration. The FDA has determined that such clearance or approval is not necessary. INTERPRETATION: A. Antral biopsy: Negative for Helicobacter pylori organisms. SJ:kimberley 11/02/19
[2019-11-01 07:13] VITALS: BP 145/101; BP 175/102; BP 185/93; PULSE 88; PULSE 95; RESP 16; TEMP 36.4; O2SAT 95; O2SAT 96
[2019-11-01 07:20] VITALS: BP 185/93; BP 191/98; PULSE 86; RESP 18; O2SAT 94
[2019-11-01 07:25] VITALS: BP 169/104; BP 185/93; PULSE 85; RESP 18; O2SAT 100
[2019-11-01 07:30] VITALS: BP 185/90; BP 185/93; PULSE 93; RESP 18; TEMP 36.5; O2SAT 100
--- NOTE | 2019-11-01 07:33 | OP.EGD_ITS ---
Patient Name: Tray Acevedo Procedure Date: 11/01/2019 6:07 AM Date of : 1960 Age: 59 Procedure: Upper GI endoscopy Indications: Suspected esophageal reflux Providers: Saw Hand MD Referring MD: Lloyd Herrera Medicines: Monitored Anesthesia Care Patient Profile: This is a 59 year old male. Refer to note in patient chart for documentation of history and physical. Patient has symptoms of chronic heartburn. Complications: No immediate complications. Procedure: Pre-Anesthesia Assessment: - Prior to the procedure, a History and Physical was performed, and patient medications and allergies were reviewed. The patient is competent. The risks and benefits of the procedure and the sedation options and risks were discussed with the patient. All questions were answered and informed consent was obtained. Patient identification and proposed procedure were verified by the physician, the nurse and the heel scourer in the procedure room. Mental Status Examination: alert and oriented. Airway Examination: normal oropharyngeal airway and neck mobility. Respiratory Examination: clear to auscultation. CV Examination: normal. Prophylactic Antibiotics: The patient does not require prophylactic antibiotics. Prior Anticoagulants: The patient has taken no previous anticoagulant or antiplatelet agents. ASA Grade Assessment: III - A patient with severe systemic disease. After reviewing the risks and benefits, the patient was deemed in satisfactory condition to undergo the procedure. The anesthesia plan was to use monitored anesthesia care (MAC). Immediately prior to administration of medications, the patient was re-assessed for adequacy to receive sedatives. The heart rate, respiratory rate, oxygen saturations, blood pressure, adequacy of pulmonary ventilation, and response to care were monitored throughout the procedure. The physical status of the patient was re-assessed after the procedure. After obtaining informed consent, the endoscope was passed under direct vision. Throughout the procedure, the patient's blood pressure, pulse, and oxygen saturations were monitored continuously. The gastroscope was introduced through the mouth, and advanced to the jejunum. The upper GI endoscopy was accomplished without difficulty. The patient tolerated the procedure well. Scope In: 6:47:06 AM Scope Out: 6:50:40 AM Total Procedure Duration Time 0 hours 3 minutes 34 seconds Findings: The examined jejunum was normal. Localized moderate inflammation characterized by erosions, erythema and friability was found in the duodenal bulb. Localized mild inflammation characterized by erosions and erythema was found in the gastric antrum. Biopsies were taken with a cold forceps for Helicobacter pylori testing using PyloriTek test. Biopsies were taken with a cold forceps for histology. Mildly severe esophagitis with no bleeding was found. Biopsies were taken with a cold forceps for histology. Impression: - Normal examined jejunum. - Duodenitis. - Gastritis. Biopsied. - Mildly severe reflux esophagitis. Biopsied. Recommendation: - Discharge patient to home. - Resume previous diet. - Return to physician outpatient physical therapist assistant in 1 week. - Continue present medications. Procedure Code(s): --- Professional --- 39622, Esophagogastroduodenoscopy, flexible, transoral; with biopsy, single or multiple CPT copyright 2017 [employer]. All rights reserved. The codes documented in this report are preliminary and upon kosher inspector review may be revised to meet current compliance requirements. Saw Hand MD 11/01/2019 7:33:03 AM This report has been signed electronically. Number of Addenda: 0 Note Initiated On: 11/01/2019 6:07 AM
--- NOTE | 2019-11-01 07:35 | OP.COLON_ITS ---
Patient Name: Tray Acevedo Procedure Date: 11/01/2019 6:51 AM Date of : 1960 Age: 59 Procedure: Colonoscopy Indications: Screening for colorectal malignant neoplasm Providers: Saw Hand MD Referring MD: Lloyd Herrera Medicines: Monitored Anesthesia Care Patient Profile: This is a 59 year old male. Refer to note in patient chart for documentation of history and physical. Patient has symptoms of chronic heartburn. Last Colonoscopy: none. The patient's first colonoscopy is today. Complications: No immediate complications. Procedure: Pre-Anesthesia Assessment: - Prior to the procedure, a History and Physical was performed, and patient medications and allergies were reviewed. The patient is competent. The risks and benefits of the procedure and the sedation options and risks were discussed with the patient. All questions were answered and informed consent was obtained. Patient identification and proposed procedure were verified by the physician, the nurse and the case coordinator in the procedure room. Mental Status Examination: alert and oriented. Airway Examination: normal oropharyngeal airway and neck mobility. Respiratory Examination: clear to auscultation. CV Examination: normal. Prophylactic Antibiotics: The patient does not require prophylactic antibiotics. Prior Anticoagulants: The patient has taken no previous anticoagulant or antiplatelet agents. ASA Grade Assessment: III - A patient with severe systemic disease. After reviewing the risks and benefits, the patient was deemed in satisfactory condition to undergo the procedure. The anesthesia plan was to use monitored anesthesia care (MAC). Immediately prior to administration of medications, the patient was re-assessed for adequacy to receive sedatives. The heart rate, respiratory rate, oxygen saturations, blood pressure, adequacy of pulmonary ventilation, and response to care were monitored throughout the procedure. The physical status of the patient was re-assessed after the procedure. After I obtained informed consent, the scope was passed under direct vision. Throughout the procedure, the patient's blood pressure, pulse, and oxygen saturations were monitored continuously. The colonoscope was introduced through the anus and advanced to the cecum, identified by the appendiceal orifice, ileocecal valve and palpation. The colonoscopy was performed without difficulty. The patient tolerated the procedure well. The quality of the bowel preparation was good. Scope In: 6:53:04 AM Scope Withdrawal Time 0 hours 12 minutes 0 seconds Scope Out: 7:08:48 AM Total Procedure Duration Time 0 hours 15 minutes 44 seconds Findings: The perianal and digital rectal examinations were normal. Two sessile polyps were found in the recto-sigmoid colon. The polyps were medium in size. These polyps were removed with a cold snare. Resection and retrieval were complete. The exam was otherwise without abnormality. The retroflexed view of the distal rectum and anal verge was normal and showed no anal or rectal abnormalities. Scattered mild inflammation characterized by congestion (edema) and granularity was found in the cecum. Biopsies were taken with a cold forceps for histology. Impression: - Two medium polyps at the recto-sigmoid colon, removed with a cold snare. Resected and retrieved. - The examination was otherwise normal. - The distal rectum and anal verge are normal on retroflexion view. - Scattered mild inflammation was found in the cecum secondary to colitis. Biopsied. Recommendation: - Discharge patient to home. - Resume previous diet. - Continue present medications. - Await pathology results. - Return to physician staffing assistant in 1 week. - Repeat colonoscopy is recommended. The colonoscopy date will be determined after pathology results from today's exam become available for review. Procedure Code(s): --- Professional --- 23906, Colonoscopy, flexible; with removal of tumor(s), polyp(s), or other lesion(s) by snare technique CPT copyright 2017 [employer]. All rights reserved. The codes documented in this report are preliminary and upon medical office administrator review may be revised to meet current compliance requirements. Saw Hand MD 11/01/2019 7:35:21 AM This report has been signed electronically. Number of Addenda: 0 Note Initiated On: 11/01/2019 6:51 AM
[2019-11-01 07:52] VITALS: BP 185/93
== END 2019-11-01 07:57 | disposition home or self-care (01) ==
LOC: EN 05:30 → AC 05:30
PROVIDERS: Family Provider Family Medicine; PCP Family Medicine; Referring Provider Family Medicine; Visit Provider Surgery
PROC: 0DJD8ZZ Inspection of Lower Intestinal Tract, Via Natural or Artificial Opening Endoscopic (ICD-10-PCS; CPT 45378; principal; 2019-11-01 06:25)
DX: Z12.11 Encounter for screening for malignant neoplasm of colon (principal); K62.1 Rectal polyp; K63.5 Polyp of colon; K52.9 Noninfective gastroenteritis and colitis, unspecified; K21.0 Gastro-esophageal reflux disease with esophagitis; K29.80 Duodenitis without bleeding; K29.70 Gastritis, unspecified, without bleeding; I10 Essential (primary) hypertension; J44.9 Chronic obstructive pulmonary disease, unspecified; B19.20 Unspecified viral hepatitis C without hepatic coma; G40.509 Epileptic seizures related to external causes, not intractable, without status epilepticus; F32.9 Major depressive disorder, single episode, unspecified; F41.9 Anxiety disorder, unspecified; F12.90 Cannabis use, unspecified, uncomplicated; F17.210 Nicotine dependence, cigarettes, uncomplicated; F10.10 Alcohol abuse, uncomplicated; Y90.9 Presence of alcohol in blood, level not specified; Z79.82 Long term (current) use of aspirin; Z79.899 Other long term (current) drug therapy
CPT/HCPCS: 43239; 45380; 45385; 88305; 88313; 88342; J7120; J2405

== ENCOUNTER 2020-06-26 01:15 | Emergency (ER) | payer MEDICARE, SELFPAY ==
[2020-06-26 01:16] VITALS: BP 137/92; PULSE 73; RESP 18; TEMP 36.6; O2SAT 97; BMI 20.5
[2020-06-26 01:18] VITALS: O2SAT 98
--- NOTE | 2020-06-26 01:22 | RAD_ITS ---
STUDY: X-RAY CHEST REASON FOR EXAM: Male, 60 years old. Patient coughing up blood. Started 3 days ago. Fell tonight due to feeling weak. TECHNIQUE: PA and lateral COMPARISON: 04/04/2019 FINDINGS: There are new opacities in the RIGHT upper lung. There is RIGHT upper lobe pleural thickening versus loculated fluid. This could be an infectious process. Neoplasm not excluded. LEFT lung is clear and expanded. There is NO pneumothorax. Normal size heart. Normal mediastinum and alex. Normal visualized pulmonary arteries. Normal visualized aortic arch and descending thoracic aorta. Normal visualized thoracic spine. Normal visualized ribs, clavicles, and shoulders. There is no demonstrated abnormality of the visualized soft tissue structures of the upper abdomen. RAD/Chest PA and Lateral IMPRESSION: There are new opacities in the RIGHT upper lung. There is RIGHT upper lobe pleural thickening versus loculated fluid. This could be an infectious process. Neoplasm not excluded. LEFT lung is clear and expanded. There is NO pneumothorax. Normal size heart. Electronically Signed: Declan Guerra MD at 2:09 EDT , Service support ,
[2020-06-26 01:34] LABS: Absolute Lymphocyte Count 2.29 X10^3/uL (0.83-4.51); Absolute Neutrophil Count 6.9 X10^3/uL (2.0-7.7); Basophil# 0.03 X10^3/uL; Basophil% 0.3 % (0-1); Eosinophil# 0.07 X10^3/uL; Eosinophils% 0.7 % (0-5); Hematocrit 35.7 % (40-54); Hemoglobin 12.2 g/dL (13.0-16.5); Lymphocyte # 2.29 X10^3/ul (4.0); Lymphocyte % 21.8 % (19-41); Mean Corp Hgb Conc 34.2 g/dL (32-36); Mean Corpuscular Hgb 30.6 pg (27.0-32.0); Mean Corpuscular Volume 89.5 fL (80-94); Mean Platelet Vol. 9.7 fl (6.2-12.0); Monocyte# 0.99 X10^3/uL; Monocyte% 9.4 % (0-10); NRBC Flagged by Analyzer 0 % (0-5); Neutrophil % 65.6 % (47-70); Platelet Count 255 K/mm3 (150-450); RBC Distribution Width CV 12.6 % (11.6-14.6); RBC Distribution Width SD 41.4 fl (35.1-43.9); Red Blood Count 3.99 M/mm3 (4.6-6.2); White Blood Count 10.5 K/mm3 (4.4-11.0)
[2020-06-26 01:43] LABS: Anion Gap 8 (5-15); BUN 4 mg/dL (7-18); BUN/Creat Ratio 5.5 RATIO (10-20); Calcium,Total 9.5 mg/dL (8.5-10.1); Chloride 95 mmol/L (98-107); Creatinine, Serum 0.73 mg/dL (0.70-1.30); EST Glomerular Filtration Rate 117 mL/min (>60); Est Glom Filt Rate - Afr Amer 142 mL/min (>60); Estimated Creatinine Clearance 94.62 ml/min; Glucose 98 mg/dL (74-106); Potassium 3.7 mmol/L (3.5-5.1); Sodium Level 125 mmol/L (136-145)
--- NOTE | 2020-06-26 02:29 | ED.VISSUMM ---
- ER Visit Summary Date of Service: 06/26/20 Chief Complaint: Coughing up blood History of Present Illness: The patient is a 60 M patient states he is coughing up blood for the past 2 days. He states his cough is been more productive of a sputum. It is now tinged with blood. He denies any fevers, shortness of breath, nausea, vomiting, abdominal pain. He is on no blood thinning medications. He denies any sore throat or ear pain. He does have a history of COPD and is not compliant with his oxygen at home. He continues to smoke. The last time this happened he was diagnosed with pneumonia. Physical Examination: Vital signs reviewed. HEENT exam unremarkable. There is no old or new blood in the oropharynx. Heart is regular rate and rhythm without murmurs. Lungs are diffusely rhonchorous without any wheezes. Abdomen is soft and nontender. Extremities reveal no edema. Skin exam normal. Neurologic exam normal. Test Results: White blood cell count normal. Hemoglobin 12.2, sodium 125, chloride 95. These laboratory studies are at baseline. Chest x-ray shows a right upper lobe infiltrate. Underlying mass is not excluded Emergency Department Course and Treatment: The patient's pulse ox and pulse are normal. His laboratory studies are all at baseline. He does not want to stay in the hospital. I feel he can be treated as an outpatient. He did produce some sputum for me and there is some tinged blood. He is not having erika hemoptysis. His blood pressure is normal. I will give him a dose of oral Levaquin. I informed him of his chest x-ray results and that he needs to follow-up with his PCP as an outpatient for further testing. He understands this. Treatment Plan: [] Disposition: Discharge Impression: Community-acquired pneumonia This note was generated with [employer] dictation software. It may contain incorrect words, spelling, and punctuation that were not noted in review of the chart prior to signing ED Disposition - Plan for ED Patient: Disposition: Home or Assisted Living Instructions: ED PNEUMONITIS Adult Prescriptions: Levofloxacin [Levaquin] 750 mg PO DAILY #6 tab Transmission Status: Pending to [id number] Referrals: Lloyd Herrera MD [Primary Care Provider] -
[2020-06-26 03:09] VITALS: RESP 16
[2020-06-26] MEDS: levoFLOXacin 750 MG Tablet PO (03:10)
== END 2020-06-26 03:12 | disposition home or self-care (01) ==
PROVIDERS: Emergency Provider Emergency Medicine; PCP Family Medicine
DX: J18.9 Pneumonia, unspecified organism (principal); J44.0 Chronic obstructive pulmonary disease with (acute) lower respiratory infection; Z91.19 Patient's noncompliance with other medical treatment and regimen
CPT/HCPCS: 71046; 80048; 85025; 99285

== ENCOUNTER → 2020-07-10 15:57 | Outpatient (CLI) | payer MEDICARE, SELFPAY ==
[2020-06-26 01:16] VITALS: BMI 20.5
--- NOTE | 2020-07-10 16:03 | CT_ITS ---
STUDY: CT CHEST WITHOUT CONTRAST REASON FOR EXAM: Male, 60 years old. PNEUMONIA RUL RADIATION DOSAGE (If Supplied By Facility): CTDIvol = ( 8.51 ) mGy, DLP = ( 333.90 ) mGycm TECHNIQUE: Transaxial imaging was performed without the administration of intravenous contrast material. Individualized dose optimization techniques were used for this CT. COMPARISON: Previous CT study of 06/16/2012 FINDINGS: There is a thick-walled geographic multiloculated cavitary lesion of the posterior right upper lobe measuring overall approximately 7.1 x 4.2 by 7.3 cm. There is a tail extending from this lesion to the lateral right upper hemithoracic pleural surface. There are hazy groundglass infiltrates of the right lower lobe. There is no pleural effusion. The heart size is within normal limits. There is no pericardial effusion. Coronary valvular calcifications are seen. Evaluation of hilar and mediastinal structures is limited as intravenous contrast was not given. There is encasement by mass or adenopathy of the mid to distal right main bronchus involving a region approximately 4.2 x 3.6 x 5.0 cm. The distal right pulmonary artery also appears to be encased by said right hilar/mediastinal mass/adenopathy. There are calcified plaques of the thoracic aorta. The esophagus is patulous and fluid-filled. There are multiple old healed right-sided rib fractures. No lytic or blastic osseous changes are seen. There are calcified plaques of the abdominal aorta. Lateral renal vascular calcifications are noted. CT/Chest without Contrast IMPRESSION: 1. Thecal geographic multiloculated cavitary lesion of the posterior right upper lobe measuring overall approximately 7.1 x 4.2 x 7.3 cm. There is a soft tissue tail extending from this lesion to the lateral right upper hemithoracic pleural surface. 2. There is encasement by mass or adenopathy of the mid to distal right main bronchus and distal right pulmonary artery. Right hilar/mediastinal mass/adenopathy involves a region measuring approximately 4.2 x 3.6 x 5.0 cm. Exact delineation of lesion is difficult as intravenous contrast was not given. 3. Hazy groundglass infiltrates of the right lower lobe. 4. Differential diagnosis would primarily include infectious etiology versus neoplasm. Electronically Signed: Dominick Lopez MD at 16:55 EDT , Service support ,
== END ==
PROVIDERS: PCP Family Medicine; Referring Provider Nurse Practitioner Family; Visit Provider Nurse Practitioner Family
DX: J18.9 Pneumonia, unspecified organism (principal)
CPT/HCPCS: 71250

== ENCOUNTER → 2020-07-11 10:43 | Outpatient (CLI) | payer MEDICARE, SELFPAY ==
[2020-07-11 06:00] VITALS: BMI 20.7
[2020-07-11 11:17] LABS: Hematocrit 32.8 % (40-54); Hemoglobin 11.5 g/dL (13.0-16.5); Mean Corp Hgb Conc 35.1 g/dL (32-36); Mean Corpuscular Hgb 30.1 pg (27.0-32.0); Mean Corpuscular Volume 85.9 fL (80-94); Mean Platelet Vol. 10.4 fl (6.2-12.0); Platelet Count 192 K/mm3 (150-450); RBC Distribution Width CV 12.5 % (11.6-14.6); RBC Distribution Width SD 38.7 fl (35.1-43.9); Red Blood Count 3.82 M/mm3 (4.6-6.2); White Blood Count 8.7 K/mm3 (4.4-11.0)
[2020-07-11 11:31] LABS: Prothrombin Time (Protime)PT. 12.9 SECONDS (11.7-14.9)
[2020-07-11 11:32] LABS: Partial Thromboplast Time 29.2 Seconds (24.1-36.2)
== END ==
PROVIDERS: PCP Family Medicine; Referring Provider Internal Medicine Critical Care Medicine; Visit Provider Internal Medicine Critical Care Medicine
DX: B18.2 Chronic viral hepatitis C (principal); R91.8 Other nonspecific abnormal finding of lung field; F10.20 Alcohol dependence, uncomplicated; Z72.0 Tobacco use
CPT/HCPCS: 36415; 85027; 85610; 85730

== ENCOUNTER 2020-07-12 10:49 | Day surgery (SDC) | payer MEDICARE, SELFPAY ==
[2020-07-11 06:00] VITALS: BMI 20.7
[2020-07-12] VITALS (8 sets, daily range): BP systolic 109–154; BP diastolic 78–91; PULSE 70–98; RESP 16–20; TEMP 35.7–36.5; O2SAT 92–100; BMI 19.3
--- NOTE | 2020-07-12 | ASPIG_PTH ---
PATIENT: AURY AREVALO LOC: EN U#:[id number] AGE/SX: 60/M ROOM: RE07/12/[address]: Dr. Saw Almanzar MD : 1960 BED: DIS: 07/12/2020 SPEC #: [id number] RECD: 07/12/20 13:37 STATUS: LUISANA JULIETH #: [id number] URBAN: 07/12/20 00:[address]: Saw Almanzar DEPT: CYTOLOGY RECD BY: Sami Alberto ENTERED: 07/12/20 13:42 SP TYPE: ASP OUT OTHR DR: Dr. Lloyd Herrera MD Tissues: A - Lung, NOS B - Lung, NOS C - Lung, NOS D - Lung, NOS E - Lung, NOS F - Lung, NOS G - Lung, NOS H - Lung, NOS Procedures: FNA Specimen Adequacy Special Stain Group II Surgery Specimen Level IV Cytology Other HEADER OPERATION: Endobronchial ultrasound PRE-OP DIAGNOSIS: Lung mass TISSUE SUBMITTED: A - EBUS, TBNA, site 7 #1, B - EBUS, TBNA, site 7 #2, C - EBUS, TBNA, site 10L #3, D - EBUS, TBNA, site 10L #4, E - EBUS, TBNA, site?7, F - EBUS, TBNA, site 10L, G - Right main fluid for cytology, I - Right main slides x3 DIAGNOSIS CYTOLOGY A. EBUS, TBNA, site 7 #1 (smears): Positive for malignant cells, non-small cell carcinoma, squamous cell carcinoma. B. EBUS, TBNA, site 7 #2 (smears): Positive for malignant cells, non-small cell carcinoma, squamous cell carcinoma. C. EBUS, TBNA, site 10L #3 (smears): Positive for malignant cells, non-small cell carcinoma, squamous cell carcinoma. D. EBUS, TBNA, site 10L #4 (smears): Atypical epithelioid cells present. E. EBUS, TBNA, site 7 needle rinse (cell block): Positive for malignant cells, non-small cell carcinoma, squamous cell carcinoma. F. EBUS, TBNA, site 10L needle rinse (cell block): Negative for malignant cells. G. Right main bronchus, bronchioalveolar lavage fluid (cytospin and cell block): Positive for malignant cells, non-small cell carcinoma, squamous cell carcinoma. H. Right main bronchus, brushings (smears): Positive for malignant cells, non-small cell carcinoma, squamous cell carcinoma. AM:kimberley 07/17/20 COMMENT The specimen is evaluated at the time of procedure by Dr. Momin. Rapid onsite evaluation: A. EBUS, TBNA, site 7 #1: Atypical epithelioid cells present. B. EBUS, TBNA, site 7 #2: Atypical epithelioid cells present suspicious for malignancy. C. EBUS, TBNA, site 10L #3: Atypical epithelioid cells present. D. EBUS, TBNA, site 10L #4: Atypical epithelioid cells present. Please see corresponding surgical case ([id number]) in which squamous cell carcinoma was identified. Case has been reviewed in consultation with Dr. Harp who concurs with the above diagnosis. IDC:SJ CYTOLOGY STUDY Slides are reviewed. CYTOLOGY GROSS A - Received labeled with the patient's name and and designated EBUS, TBNA, aspiration #1, site 7. The specimen consists of two smears. The smears are submitted for immediate cytologic evaluation (wet read). B - Received labeled with the patient's name and and designated EBUS, TBNA, aspiration #2, site 7. The specimen consists of two smears. The smears are submitted for immediate cytologic evaluation (wet read). C - Received labeled with the patient's name and and designated EBUS, TBNA, aspiration #3, site 10L. The specimen consists of two smears. The smears are submitted for immediate cytologic evaluation (wet read). D - Received labeled with the patient's name and and designated EBUS, TBNA, aspiration #4, site 10L. The specimen consists of two smears. The smears are submitted for immediate cytologic evaluation (wet read). E - Received is 30 ml of red, cloudy fluid in RPMI labeled with the patient's name and and designated EBUS, TBNA, site 7, needle rinse submitted for cell block only. F - Received is 30 ml of red, cloudy fluid in RPMI labeled with the patient's name and and designated EBUS, TBNA, site 10L, needle rinse submitted for cell block only. / AM:rg 07/12/20 G - Received is 10 ml of red cloudy fluid labeled with the patient's name and and designated per the requisition as right main BAL. Submitted for cytology preparation including cell block. H - Received are three smears labeled with the patient's name and designated per the requisition as right main brushings. Submitted for staining. / rg 07/15/20 TC:0 CPT: 18963 x4, 25589 x4, 34949 x3, 07658
--- NOTE | 2020-07-12 | LUNG_PTH ---
PATIENT: AURY AREVALO LOC: EN U#:[id number] AGE/SX: 60/M ROOM: RE07/12/[address]: Dr. Saw Almanzar MD : 1960 BED: DIS: 07/12/2020 SPEC #: [id number] RECD: 07/12/20 13:56 STATUS: LUISANA REBrenda #: [id number] URBAN: 07/12/20 00:[address]: Saw Almanzar DEPT: SURGICAL PATHOLOGY RECD BY: Sami Alberto ENTERED: 07/12/20 13:56 SP TYPE: LUNG BX OTHR DR: Dr. Lloyd Herrera MD Tissues: Lung, NOS Procedures: Surgery Specimen Level IV HEADER OPERATION: Endobronchial ultrasound PRE-OP DIAGNOSIS: Lung mass TISSUE SUBMITTED: Lung biopsy right main MICROSCOPIC DIAGNOSIS Lung mass, endobronchial ultrasound-guided biopsy: Non-small cell carcinoma, squamous cell carcinoma. See comment. AM:kimberley 07/17/20 COMMENT Immunohistochemistry ([id number]) supports the above diagnosis. Focal neuroendocrine features are noted. Case has been reviewed in consultation with Dr. Harp who concurs with the above diagnosis. IDC:SJ MICROSCOPIC DESCRIPTION Slides are reviewed. GROSS DESCRIPTION Received in fixative is one container labeled with the patient's name and designated right main. The specimen consists of multiple irregular fragments of light [place] soft tissue that in aggregate measure 0.5 x 0.3 x <0.1 cm. The specimen is totally submitted in one cassette. / AM:rg 07/12/20 TC:0 CPT: 60640
--- NOTE | 2020-07-12 | IMM_PTH ---
PATIENT: AURY AREVALO LOC: EN U#:[id number] AGE/SX: 60/M ROOM: RE07/12/[address]: Dr. Saw Almanzar MD : 1960 BED: DIS: 07/12/2020 SPEC #: [id number] RECD: 07/16/20 14:17 STATUS: SOUCindy REQ #: [id number] URBAN: 07/12/20 00:[address]: Saw Almanzar DEPT: IMMUNOHISTOCHEMISTRY RECD BY: Kaylyn Oates ENTERED: 07/16/20 14:18 SP TYPE: IMMUNO OTHR DR: Dr. Lloyd Herrera MD Tissues: Lung, NOS Procedures: Synapto (add) NAPSIN A (add) CD56 (add) CHROMO (add) CK14 (add) CK5-6 (add) P16 (add) TTF1 (add) Pankeratin (initial) P40 (add) PHYSICIAN & INSTITUTION [place] [id number] SPECIMEN INFORMATION: Tissue Source: Lung mass Clinical Info: Lung mass Specimen Number: [id number] CPT code: 84931, 05884 x9 METHODOLOGY: Deparaffinized sections of prefer/formalin-fixed tissue or PAP/DQ stained slides are incubated with monoclonal/polyclonal antibodies/oligonucleotide probes. Localization is made via biotin free immunoperoxidase method. Appropriate controls are performed and reacted as expected. Results on target cell population are indicated in the following table: RESULTS: ANTIBODY / CLONE RESULT AE1-3 (AE1/AE3/PCK26) positive TTF-1 (8G7G3/1) negative Napsin A (Rabbit Polyclonal) negative CK5-6 (D5 & 1684) positive CK14 (LL002) positive P40 (BC28) positive P16 (E6H4) negative CD56 (123C3.D5) negative Chromo (LK2H10) negative Synapto (polyclonal) positive, focal These tests were developed and their performance characteristics determined by [facility]. They may not have been cleared or approved by the [place]. Food and Drug Administration. The FDA has determined that such clearance or approval is not necessary. The above immunohistochemical/dualISH markers are ordered and reviewed by the Pathologist. INTERPRETATION: Lung mass, biopsy: Non-small cell carcinoma, squamous cell carcinoma. AM:kimberley 07/17/20 Case has been reviewed in consultation with Dr. Harp who concurs with the above diagnosis. IDC:MICHAEL
[2020-07-12] MEDS: Lactated Ringers 1,000 ML 100 ML IV (11:36)
--- NOTE | 2020-07-12 11:37 | PCM.HP.BLA ---
Problem List (1) Chronic hepatitis C Status: Chronic Qualifiers: Hepatic coma status: without hepatic coma Qualified Code(s): B18.2 - Chronic viral hepatitis C (2) Lung mass Status: Acute (3) Hypophosphatemia Status: Resolved (4) Hyponatremia Status: Chronic (5) Poor dental hygiene Status: Chronic (6) Hypomagnesemia Status: Acute (7) Atrial fibrillation Status: Chronic Qualifiers: (8) Tobacco abuse Status: Chronic (9) COPD (chronic obstructive pulmonary disease) Status: Chronic (10) Hypertension Status: Chronic (11) Cannabis abuse Status: Chronic (12) Continuous chronic alcoholism Status: Chronic History and Physical Date of Admission: 07/12/20 H&P updated and there are no changes to report. Patient has had a negative PPD since 1987 when he was discharged/released from incarceration. Date of Service: 07/11/20 MR#:[id number] Name: AURY AREVALO Rep #:[id number] :1960 Provider:Dr. Saw Almanzar MD Age/Sex: 60/M Location:[facility] [place].[facility] Status:Signed Assessment & Plan Problems 1. Lung mass R91.8 2. Dyspnea on exertion R06.00 3. Tobacco abuse Z72.0 4. Chronic hepatitis C B18.2 5. Continuous chronic alcoholism F10.20 Plan Unclear etiology of the right upper lobe mass. Patient does have a history of incarceration, so TB would be a consideration. However, given patient's alcoholism and thick-walled cyst, aspiration pneumonia versus malignancy is the most likely. After review the risks, benefits and alternatives, patient has agreed to an endobronchial ultrasound for evaluation. Anticipate biopsy of mediastinal structures, BAL and potential endobronchial biopsies. Will use advanced respiratory precautions. Quantiferon will be sent, along with labs for coagulation. Will obtain a complete pulmonary function test for quantification clarification of lung function. We will also obtain a walking oximetry for evaluation of exertional hypoxemia. Prepare for EBUS and associated testing. Obtain complete PFT and walking oximetry. No change in medications until further information is available. Orders Orders: Bronchoscopy Today F10.20, R91.8, Z72.0 Quantiferon TB-Gold+ Today F10.20, R91.8, Z72.0 Smoking Cessation Today Prothrombin Time w/INR Today B18.2, F10.20, R91.8, Z72.0 CBC-Complete Blood Cnt No Diff Today B18.2, F10.20, R91.8, Z72.0 Partial Thromboplast Time Today B18.2, F10.20, R91.8, Z72.0 Pulmonary Function Test (Comp) Today R06.00 Simple Pulmonary Exercise Test Today R06.00 Plan Detail Follow Up 1 Month (CSM) HPI Lung Mass: Chief Complaint: Abnormal CT scan Details: Patient is a 60-year-old male, currently under the care of Dr. Max, who presents for evaluation secondary to an abnormal CT scan. Patient had presented to the emergency department secondary to hemoptysis following a fall earlier this month. As part of the work-up, patient had a chest x-ray showing a possible mass. This was followed up by a CT scan showing a large mass in the right upper lobe. Patient states that his hemoptysis resolved within 24 hours after antibiotics. Patient states that he has shortness of breath at rest and with exertion and has lost 16 pounds in the last 6 months unintentionally. Patient is a known alcoholic and is down to 6 beers a day. Patient has had multiple episodes of passing out and actually uses multiple pillows to facilitate sitting up in case he gets sick. Patient is unclear if he has had any fevers or chills, but does not check this normally. Patient has been told in the past that he has COPD. Patient is unaware if a pulmonary function test has ever been completed. Patient does report a cough productive of clear to white sputum on a daily basis. Patient also has a history of hepatitis C and has not received any therapy for this. Patient denies being in the or traveling abroad. Patient has had multiple assisted stents in the past with the longest being 23 months. Patient states his TB test were negative at that time. Patient was last in assisted in 1987. Patient does smoke tobacco and marijuana on a routine basis. Documentation reviewed 14 pages of documentation were reviewed prior to the office visit. Patient reportedly had presented to [facility] emergency department on June 26 complaining of coughing up blood for 2 days. Patient does have a history of smoking, COPD and is noncompliant with home oxygen. Patient was noted to have a sodium level of 125 with a chloride of 95 and chest x-ray showed a right upper lobe infiltrate with possible underlying mass. Patient was placed on Levaquin therapy and discharged. Patient reportedly uses a walker and cane at home, but does have frequent falls secondary to back pain. Patient does have a history of hepatitis C and reported alcoholism. Patient reportedly is on low-dose Advair and pro-air from a respiratory standpoint. Imaging personally reviewed with the patient CT chest (07/10/2020): Focal geographic multiloculated cavitary lesion in the right upper lobe measuring 7.1 x 4.2 x 7.3 cm. There is encasement or adenopathy to the mid and distal right main bronchus Intake Vital Signs 07/11/20 Height 5 ft 8 in 07/11/20 Weight: 61.689 kg 07/11/20 BMI 20.7 07/11/20 BP 133/84 H 07/11/20 Blood Pressure Location Lt brachial 07/11/20 Position Sitting 07/11/20 Respiration 18 07/11/20 Pulse 82 07/11/20 Pulse Source Monitor 07/11/20 Temp 36.3 C L 07/11/20 Temperature Source Tympanic 07/11/20 Pulse Oximetry (%) 95 07/11/20 Oxygen Delivery Method room air Intake Visit Reasons: Lung Mass DME Vendor: [employer] Allergies Penicillins Adverse Reaction (Verified 07/11/20 09:47) Other Medications Albuterol Inhaler [Ventolin Hfa] 2 puff INHALATION Q4H PRN PRN 08/08/18 [History Confirmed 07/11/20] Amlodipine [Norvasc] 10 mg PO DAILY 08/08/18 [History Confirmed 07/11/20] Aspirin E.C. [Ecotrin] 325 mg PO DAILY@0800 08/08/18 [History Confirmed 07/11/20] Cholecalciferol (Vitamin D3) [Vitamin D3] 2,000 unit PO DAILY 08/08/18 [History Confirmed 07/11/20] Citalopram [Celexa] 20 mg PO DAILY 08/08/18 [History Confirmed 07/11/20] Doxazosin Mesylate 2 mg PO QHS 08/08/18 [History Confirmed 07/11/20] Fluticasone/Salmeterol [Advair 100-50 Diskus] 2 puff IH BID 08/08/18 [History Confirmed 07/11/20] Gabapentin [Neurontin] 600 mg PO TIDCM 08/08/18 [History Confirmed 07/11/20] Lisinopril [Zestril] 20 mg PO BID 08/08/18 [History Confirmed 07/11/20] Metoprolol Succinate [Toprol Xl] 100 mg PO DAILY 08/08/18 [History Confirmed 07/11/20] Nystatin 5 ml PO 4X/DAY 08/08/18 [History Confirmed 07/11/20] Pantoprazole Sodium [Protonix] 20 mg PO DAILY 08/08/18 [History Confirmed 07/11/20] proMETHazine tablet [Phenergan tablet] 25 mg PO Q6H PRN PRN 08/08/18 [History Confirmed 07/11/20] Folic Acid 1 mg PO DAILY@0800 #14 tab 08/10/18 [Rx Confirmed 10/30/19] albuterol sulfate 2.5 mg INHALATION Q6H PRN 07/11/20 [History Confirmed 07/11/20] PFSH Medical History (Updated 07/11/20 @ 10:[address] Saw Almanzar MD) COPD (chronic obstructive pulmonary disease) (Chronic) H/O: HTN (hypertension) (Chronic) Surgical History (Updated 08/08/18 @ 16:[address] Saw Almanzar MD) h/o left wrist ORIF (Acute) H/O hemorrhoidectomy (Inactive) Family History (Updated 07/11/20 @ 10:03 by Dunia Price) Mother Hypertension COPD (chronic obstructive pulmonary disease) Cancer Lung, stage 4 Father Hypertension Kidney disease Social History (Updated 07/11/20 @ 10:[address] Saw Almanzar MD) Smoking Status: Current every day smoker tobacco type: cigarettes alcohol intake: current substance use type: marijuana Review of Systems Const CONSTITUTIONAL: No anorexia, No body ache, No chills, No daytime sleepiness, No fever(s), No night sweats, No stops breathing during sleep, No weight loss, No weight gain, No sleeping in chair, No orthopnea, No fatigue, No headache(s), No frequent colds, No seasonal allergies, No other EETM Ear Nose Throat Mouth: No hoarseness, No Dry mouth in morning, No change in vision, No itchy eyes, No eye pain, No Swallowing Difficulty, No ear pain, No nose bleed, No headache(s), No mouth pain, No nasal congestion, No nasal discharge, No sinus pain, No sinus pressure, No sore throat, No other Cardio Cadriovascular: No chest pain, No chest pain at rest, No chest pain with activity, No irregular heart rhythm, No shortness of breath when lying down, No palpitations, No other Resp Respiratory: Yes as per HPI Gastro Gastrointestional: Negative bloody stools, change in appetite, difficulty swallowing, reflux, hematemesis, melena stool, loose stool, constipation or other Genitourinary: Negative blood in urine, nocturia, pain with urination or other Musc Musculoskeletal: Negative body pain, back pain, neck pain or other Skin/Breast Skin/Breast: No dry skin, No itching, No unusual bruising, No breast lump, No other Neuro Neurological: Negative restless legs, confusion, weakness or other Psych Psychocological: Negative abnormal sleep pattern, anxiety, thoughts of hurting self/others, hopelessness or other Lymph Lymphatic: No easy bleeding, No easy bruising, No other Exam Const Constitutional: Positive conversant, cooperative, in no acute respiratory distress, well developed, well nourished, good hygiene, smells of smoke, frail appearing, cachectic, thin and appears older than stated age Head Head: Yes normocephalic, Yes atraumatic, No cyanosis of lips/distal nose Eyes Eye: Positive clear conjunctiva; negative nystagmus, scleral abnormality or cataract present Ears Ear: Positive hearing normal and external ears normal; negative hard of hearing Nose Nose: Yes external nose normal, No nasal polyp, Yes septum normal Mouth Mallampati Score: II: Mallampati Score Neck Neck: Positive normal visual inspection, full ROM and trachea midline; negative lymphadenopathy or JVD Chest Wall Chest: Positive symmetric chest movement and increased A/P diameter; negative crepitus or tenderness Resp lung sounds: Positive diminished and prolonged expiratory time; negative wheezes, wheeze present on forced exhalation, rhonchi, rales, dullness to percussion or use of accessory muscles Cardio Cardiac: Positive regular rate, regular rhythm, S1 normal and S2 normal; negative murmur, rub or gallop GI GI: Positive normal to inspection and normal bowel sounds; negative distended, ascites or epigastric tenderness Genitourinary: Positive deferred Musc Musculoskeletal: Positive in a wheelchair; negative kyphosis or scoliosis Skin Pulmonary Skin Exam: Positive intact and dermal atrophy; negative lesion, rash, ulcers or erythema Multiple bruises at various stages of healing Pulses Pulse: Yes radial pulses present Extremities Extremities: Yes capillary refill normal, No clubbing, No cyanosis, No edema Neuro Neurologic: Yes no focal neuro deficits, Yes conversant, Yes cooperative, Yes normal cognition, Yes normal coordination, Yes normal concentration, Yes understands questions Lymph Lymphatic: No lymphadenopathy Psych Appearance: Positive grossly normal Mental Status: Positive mental status grossly normal Mood: Positive congruent mood Affect: Positive normal affect Office Procedures Smoking Cessation Smoking Cessation Discussed with patient for 12 minutes on the importance of smoking cessation. Patient appears to be pre-contemplative at this time and is not interested in any assistance. Patient states that he has attempted to cut back on his drinking. Patient wants to find out what testing reveals before he makes any decision on smoking cessation. Time Spent greater than 10 minutes: Yes Coding Level of Care Code Off vis,new,level 5 Diagnoses Lung mass R91.8 Dyspnea on exertion R06.00 Dyspnea type: dyspnea on exertion Tobacco abuse Z72.0 Chronic hepatitis C B18.2 Continuous chronic alcoholism F10.20 Additional Codes Time Spent - greater than 10 minutes: Yes ([id number]) 07/11/20 1035<Electronically signed by Saw Almanzar MD> Date Saw Almanzar MD
--- NOTE | 2020-07-12 13:47 | OP.BRONCH_ITS ---
Patient Name: Tray Acevedo Procedure Date: 07/12/2020 11:57 AM Date of : 1960 Age: 60 Procedure: Bronchoscopy Indications: Right upper lobe mass, Right hilar mass, Bilateral hilar lymphadenopathy, Right upper lobe lung mass suspicious for cancer, Right upper lobe cavitary lesion Providers: Saw Almanzar MD Medicines: See the Anesthesia note for documentation of the administered medications Complications: No immediate complications Procedure: Pre-Anesthesia Assessment: - A History and Physical has been performed. Patient meds and allergies have been reviewed. The risks and benefits of the procedure and the sedation options and risks were discussed with the patient. All questions were answered and informed consent was obtained. Patient identification and proposed procedure were verified prior to the procedure by the physician and the nurse in the pre-procedure area. Mental Status Examination: alert and oriented. Respiratory Examination: poor air movement in both lungs and rhonchi in the right lung. CV Examination: RRR, no murmurs, no S3 or S4. ASA Grade Assessment: III - A patient with severe systemic disease. After reviewing the risks and benefits, the patient was deemed in satisfactory condition to undergo the procedure. The anesthesia plan was to use general anesthesia. Immediately prior to administration of medications, the patient was re-assessed for adequacy to receive sedatives. The heart rate, respiratory rate, oxygen saturations, blood pressure, adequacy of pulmonary ventilation, and response to care were monitored throughout the procedure. The physical status of the patient was re-assessed after the procedure. After I obtained informed consent, the scope was passed under direct vision. Throughout the procedure, the patient's blood pressure, pulse, and oxygen saturations were monitored continuously. The ultrasound bronchoscope was introduced through the mouth, via laryngeal mask airway and advanced to the tracheobronchial tree of both lungs. The procedure was accomplished without difficulty. The patient tolerated the procedure well. Findings: Right Lung Abnormalities: A medium sized partially obstructing (about 60% obstructed) fungating and friable (with contact bleeding) lesion was found 1 cm from the bifurcation (mee) in the right mainstem bronchus and in the right upper lobe. Bleeding was induced by the procedure in the right mainstem bronchus. Estimated blood loss: minimal. Pretreated lesion with 1 cc of topical epinephrine Endobronchial biopsies were performed in the right mainstem bronchus using forceps and sent for cell count, bacterial culture, viral smears & culture, and fungal & AFB analysis and histopathology examination. Three samples were obtained. Washings were obtained in the right mainstem bronchus and sent for aerobic culture and anaerobic culture. The return was bloody. Transbronchial needle aspiration of a mass was performed in the left paratracheal (AP window) area and in the subcarinal area using an Olympus EBUS-TBNA 19 gauge needle and sent for routine cytology. The procedure was guided by ultrasound. 3 samples from station 7 and 3 samples from 10L station were obtained were obtained. Stage N3. Rapid On-Site Evaluation (LARY): Preliminary cytology of the lesions in the left paratracheal (AP window) area and in the subcarinal area was suggestive of non small cell carcinoma (final results are pending). Guided brushings were obtained in the right mainstem bronchus with a cytology brush and sent for routine cytology. One sample was obtained. The patient's condition was unchanged after the intervention. The nasopharynx/oropharynx appears normal. The larynx appears normal. The vocal cords appear normal. The subglottic space is normal. The trachea is of normal caliber. The mee is sharp. The tracheobronchial tree of the left lung was examined to at least the first subsegmental level. Bronchial mucosa and anatomy in the left lung are normal; there are no endobronchial lesions, and no secretions. Impression: - Right upper lobe mass - Right hilar mass - Bilateral hilar lymphadenopathy - Right upper lobe lung mass suspicious for cancer - Right upper lobe cavitary lesion - A lesion was found in the right mainstem bronchus and in the right upper lobe. - Bleeding was induced by the procedure in the right mainstem bronchus. - An endobronchial biopsy was performed. - Washings were obtained. - A transbronchial needle aspiration was performed. - Rapid On-Site Evaluation (LARY): Preliminary cytology of the lesion in the left paratracheal (AP window) area and in the subcarinal area was suggestive of non small cell carcinoma (final results are pending). - Brushings were obtained. - The patient's condition was unchanged after the intervention. - The airway examination of the left lung was normal. - The findings are suspicious for cancer. Recommendation: - The patient will be observed post-procedure, until all discharge criteria are met. - Await biopsy, brushing, culture, cytology and washing results. - Patient has a contact number available for emergencies. The signs and symptoms of potential delayed complications were discussed with the patient. Return to normal activities tomorrow. Written discharge instructions were provided to the patient. Procedure Code(s): --- Professional --- 06979, Bronchoscopy, rigid or flexible, including fluoroscopic guidance, when performed; with transbronchial needle aspiration biopsy(s), trachea, main stem and/or lobar bronchus(i) 11134, 59, Bronchoscopy, rigid or flexible, including fluoroscopic guidance, when performed; with bronchial or endobronchial biopsy(s), single or multiple sites 63496, Bronchoscopy, rigid or flexible, including fluoroscopic guidance, when performed; with brushing or protected brushings 19922, Bronchoscopy, rigid or flexible, including fluoroscopic guidance, when performed; with transendoscopic endobronchial ultrasound (EBUS) during bronchoscopic diagnostic or therapeutic intervention(s) for peripheral lesion(s) (List separately in addition to code for primary procedure[s]) Diagnosis Code(s): --- Professional --- R91.8, Other nonspecific abnormal finding of lung field R59.0, Localized enlarged lymph nodes J98.09, Other diseases of bronchus, not elsewhere classified J98.4, Other disorders of lung J95.61, Intraoperative hemorrhage and hematoma of a respiratory system organ or structure complicating a respiratory system procedure CPT copyright 2017 [employer]. All rights reserved. The codes documented in this report are preliminary and upon stylist apprentice review may be revised to meet current compliance requirements. MD Saw Mitchell MD 07/12/2020 1:46:23 PM This report has been signed electronically. Number of Addenda: 0 Note Initiated On: 07/12/2020 11:57 AM
--- NOTE | 2020-07-12 14:13 | SUR.OPER ---
adry from lab in room.
[2020-07-12] MEDS: Epinephrine (1 mg/ml) 1 MG/ML VIAL (14:14)
[2020-07-12] MEDS: Lidocaine 2% Jelly 1 APPLIC Tube (14:15)
[2020-07-12 14:20] LABS: Cytology, Body Fluid / CSF SEE PATHOLOGY REPORT
== END 2020-07-12 15:20 | disposition home or self-care (01) ==
LOC: EN 10:50 → AC 10:51
PROVIDERS: PCP Family Medicine; Referring Provider Family Medicine; Visit Provider Internal Medicine Critical Care Medicine
PROC: BB4BZZZ Ultrasonography of Pleura (ICD-10-PCS; CPT 31623; principal; 2020-07-12 11:30)
DX: R91.8 Other nonspecific abnormal finding of lung field (principal); R59.0 Localized enlarged lymph nodes; J98.09 Other diseases of bronchus, not elsewhere classified; J98.4 Other disorders of lung; B18.2 Chronic viral hepatitis C; I48.91 Unspecified atrial fibrillation; J44.9 Chronic obstructive pulmonary disease, unspecified; I10 Essential (primary) hypertension; F12.10 Cannabis abuse, uncomplicated; F10.20 Alcohol dependence, uncomplicated; Z72.0 Tobacco use; Z79.51 Long term (current) use of inhaled steroids; Z79.82 Long term (current) use of aspirin; Z88.0 Allergy status to penicillin
CPT/HCPCS: 31623; 31625; 31629; 31654; 87070; 87075; 87077; 87176; 87186; 87205; 87252; 88161; 88172; 88305; 88313; 88341; 88342; J7120; A4216; J2405; J3490